=== PATIENT | male | born 1955 | race Caucasian/White ===

== ENCOUNTER → 2017-04-26 | Outpatient (CLI) | payer BC ==
--- NOTE | 2017-04-26 08:30 | CT ---
EXAMINATION TYPE: CT abdomen pelvis wo con DATE OF EXAM: 04/26/2017 COMPARISON: 03/28/2015 HISTORY: Hernia CT DLP: 778 mGycm Automated exposure control for dose reduction was used. TECHNIQUE: Helical acquisition of images was performed from the lung bases through the pelvis. Lack of contrast severely limits the exam FINDINGS: LUNG BASES: Mild emphysematous changes at the lung bases LIVER/GB: Hypodensity within the liver is too small to characterize but likely related to simple cyst .. PANCREAS: No significant abnormality is seen. SPLEEN: No significant abnormality is seen. ADRENALS: No significant abnormality is seen. KIDNEYS: Prostate is heterogeneous and enlarged and contains calcified patient. There is persistent l eft-sided hydronephrosis and hydroureter with periureteral edema and marked bladder wall thickening. Right-sided hydroureter and mild right hydronephrosis noted. Cortical thinning of the right kidney ma y been the basis of chronic medical renal disease. Possibly from chronic hydronephrosis. FREE AIR: No free air is visualized. ADENOPATHY: None visualized OSSEOUS STRUCTURES: Hypertrophic and degenerative change of the spine. BOWEL: There is a large ventral hernia mouth measuring approximately 6.5 cm extending into the subcu taneous tissues possible dehiscence. No bowel wall thickening or obstructive pattern. Suggestion of p revious surgery involving the bowel. OTHER: Aorta of normal caliber IMPRESSION: 1. Large [place] anterior abdominal wall hernia with no evidence of bowel obstruction or bowel wall thickening or obstruction. Mouth of the hernia measures approximately 6.5 cm. 2. Persistent marked bladder wall thickening may been the basis of chronic cystitis or mucosal lesion . There is moderate to severe left hydronephrosis with periureteral edema but no calcification. May b e secondary to obstruction or postinfectious. Correlate clinically. Mild right hydronephrosis and hyd roureter noted.
== END | disposition home or self-care (01) ==
LOC: RADCTMAIN 07:16
PROVIDERS: ATTEND Surgery
DX: K43.9 Ventral hernia without obstruction or gangrene (principal); N13.30 Unspecified hydronephrosis
CPT/HCPCS: 74176

== ENCOUNTER → 2018-03-28 | Outpatient (CLI) | payer BC ==
[2018-03-28 07:24] LABS: Basophils # (A) 0.1 k/uL (0-0.2); Basophils % (A) 1 %; Eosinophils # (A) 0.1 k/uL (0-0.7); Eosinophils % (A) 1 %; HGB 15.3 gm/dL (13.0-17.5); Lymphocytes # (A) 0.7 k/uL (1.0-4.8); Lymphocytes % (A) 15 %; MCH 29.3 pg (25.0-35.0); MCV 91.5 fL (80.0-100.0); Mean Platelet Volume 7.3; Monocytes # (A) 0.4 k/uL (0-1.0); Monocytes % (A) 8 %; Neutrophils # (A) 3.6 k/uL (1.3-7.7); Neutrophils % (A) 72 %; Platelet Count 274 k/uL (150-450); RBC 5.25 m/uL (4.30-5.90); RDW 14.9 % (11.5-15.5); WBC 4.9 k/uL (3.8-10.6)
[2018-03-28 07:53] LABS: Calcium 10.7 mg/dL (8.4-10.2); Magnesium 1.9 mg/dL (1.6-2.3); Phosphorus 2.9 mg/dL (2.5-4.5); Potassium 4.7 mmol/L (3.5-5.1); Total Bilirubin 0.5 mg/dL (0.2-1.3); Total Protein 6.8 g/dL (6.3-8.2); Uric Acid 8.7 mg/dL (3.5-8.5)
[2018-03-28 09:27] LABS: C Reactive Protein 15.4 mg/L (<10.0)
[2018-03-28 09:55] LABS: Prostate Specific Antigen 5.21 ng/mL (0.00-4.00)
[2018-03-28 10:39] LABS: Erythrocyte Sedimentation Rate 10 mm/hr (0-15)
[2018-03-28 12:18] LABS: Parathyroid Hormone Intact 134.5 pg/mL (14.0-72.0)
[2018-03-28 14:26] LABS: Iron Saturation 20.13 (15.00-50.00)
== END | disposition home or self-care (01) ==
LOC: LABWHC1 06:36
PROVIDERS: ATTEND Internal Medicine
DX: E78.5 Hyperlipidemia, unspecified (principal); D64.9 Anemia, unspecified; C61 Malignant neoplasm of prostate; N40.0 Benign prostatic hyperplasia without lower urinary tract symptoms; E87.8 Other disorders of electrolyte and fluid balance, not elsewhere classified; E21.3 Hyperparathyroidism, unspecified; E03.9 Hypothyroidism, unspecified; E55.9 Vitamin D deficiency, unspecified; I48.91 Unspecified atrial fibrillation
CPT/HCPCS: 36415; 80053; 80061; 82306; 82550; 82728; 83540; 83550; 83735; 83970; 84100; 84153; 84443; 84550; 85025; 85652; 86140

== ENCOUNTER → 2018-06-25 | Outpatient (CLI) | payer MEDICARE, BC ==
--- NOTE | 2018-06-25 13:00 | CT ---
EXAMINATION TYPE: CT ChestAbdPelvis w con DATE OF EXAM: 06/25/2018 COMPARISON: 04/26/2017 HISTORY: Prostate CA CT DLP: 1400 mGycm CONTRAST: CT scan of the chest, abdomen and pelvis is performed with Oral Contrast and with IV Contrast, patien t injected with 80 mL of Isovue 300. CT Chest: LUNGS: The lungs are clear and free of infiltrate or atelectasis. No pulmonary nodule or mass is det ected. No pleural effusion or CT evidence of interstitial lung disease. MEDIASTINUM: Thoracic aorta is of normal caliber. The heart is not enlarged. No evidence for media stinal mass or adenopathy. HILAR STRUCTURES: No evidence for mass. No hilar adenopathy is appreciated. OTHER: No significant abnormality. CONTRAST CT ABDOMEN AND PELVIS FINDINGS: LIVER/GB: No calcified gallstones. No space occupying hepatic lesion. Biliary tree is of normal ca liber. PANCREAS: No inflammation. No distinct mass. SPLEEN: No splenic enlargement. No lesion seen. ADRENALS: No nodule. No thickening. KIDNEYS/BLADDER: Persistent severe circumferential wall thickening of the urinary bladder with the ma ss suggested at the base of the urinary bladder which may reflect tumor infiltration from the prostat e gland. Bilateral hydronephrosis persists left greater than right with urothelial thickening. Renal cystic changes persist. BOWEL: Normal appendix. Repair of previously noted anterior abdominal wall hernia. Normal bowel amauri sandy. No inflammation. GENITAL ORGANS: No gross abnormality. LYMPH NODES: No greater than 1cm abdominal or pelvic lymph nodes are appreciated. AORTA: No significant abnormality. OSSEOUS STRUCTURES: No significant abnormality is seen. OTHER: No significant additional abnormality is seen. IMPRESSION: 1. Persistent severe circumferential wall thickening of the urinary bladder with the mass suggested a t the base of the urinary bladder which may reflect tumor infiltration from the prostate gland. Bilat eral hydronephrosis persists left greater than right with urothelial thickening.
--- NOTE | 2018-06-25 14:28 | NM ---
EXAMINATION TYPE: NM bone scan whole body DATE OF EXAM: 06/25/2018 COMPARISON: Correlation CT same day HISTORY: 63-year-old male with prostate cancer. Technique: Delayed whole-body scanning was performed following the injection of 23.3 mCi Tc 99m MDP. Images acquired 3 hours post injection. Whole body AP and posterior projection images were obtained. FINDINGS: Mild degenerative uptake at both shoulders and the sternoclavicular joints. Additional mild degenerat krunal uptake at both knees. Tracer distends the left renal collecting system. No suspicious distribution of tracer to suggest osseous metastatic disease. IMPRESSION: 1. No scintigraphic evidence for osseous metastatic disease. 2. Prominent tracer distending the left renal collecting system in keeping with the patient's known l eft-sided hydronephrosis.
== END | disposition home or self-care (01) ==
LOC: RADNMMAIN 09:58
PROVIDERS: ATTEND Internal Medicine Hematology & Oncology
DX: N13.30 Unspecified hydronephrosis (principal); N32.89 Other specified disorders of bladder; C61 Malignant neoplasm of prostate
CPT/HCPCS: 82565; 84520; 71260; 74177; 36415; 78306; A9503; Q9967

== ENCOUNTER → 2018-07-01 | Outpatient (CLI) | payer MEDICARE, BC ==
[2018-07-01 08:12] LABS: Basophils # (A) 0.1 k/uL (0-0.2); Basophils % (A) 2 %; Eosinophils # (A) 0.1 k/uL (0-0.7); Eosinophils % (A) 1 %; HCT 47.1 % (39.0-53.0); HGB 15.1 gm/dL (13.0-17.5); Lymphocytes # (A) 0.7 k/uL (1.0-4.8); Lymphocytes % (A) 16 %; MCH 29.6 pg (25.0-35.0); MCV 92.5 fL (80.0-100.0); Mean Platelet Volume 8.1; Monocytes # (A) 0.3 k/uL (0-1.0); Monocytes % (A) 7 %; Neutrophils # (A) 3.2 k/uL (1.3-7.7); Neutrophils % (A) 71 %; Platelet Count 316 k/uL (150-450); RBC 5.09 m/uL (4.30-5.90); WBC 4.6 k/uL (3.8-10.6)
[2018-07-01 09:36] LABS: ALT 25 U/L (21-72); AST 22 U/L (17-59); Albumin 3.8 g/dL (3.5-5.0); Alkaline Phosphatase 63 U/L (38-126); Anion Gap 7 mmol/L; Blood Urea Nitrogen 26 mg/dL (9-20); C Reactive Protein <5.0 mg/L (<10.0); Calcium 10.6 mg/dL (8.4-10.2); Carbon Dioxide 25 mmol/L (22-30); Chloride 108 mmol/L (98-107); Cholesterol 190 mg/dL (<200); Creatine Kinase 37 U/L (55-170); Glucose 97 mg/dL (74-99); HDL Cholesterol 67 mg/dL (40-60); LDL Cholesterol,Calculated 109 mg/dL (0-99); Phosphorus 3.3 mg/dL (2.5-4.5); Sodium 140 mmol/L (137-145); Total Bilirubin 0.5 mg/dL (0.2-1.3); Total Protein 6.8 g/dL (6.3-8.2); Triglycerides 70 mg/dL (<150); Uric Acid 7.8 mg/dL (3.5-8.5)
[2018-07-01 10:03] LABS: Erythrocyte Sedimentation Rate 15 mm/hr (0-15)
[2018-07-01 10:04] LABS: Prostate Specific Antigen 4.56 ng/mL (0.00-4.00)
[2018-07-01 17:03] LABS: Parathyroid Hormone Intact 159.3 pg/mL (14.0-72.0)
[2018-07-01 17:07] LABS: Iron Saturation 16.51 (15.00-50.00)
[2018-07-01 17:18] LABS: Vitamin D 25 Hydroxy 17.9 ng/mL (30.0-100.0)
== END | disposition home or self-care (01) ==
LOC: LABWHC1 06:49
PROVIDERS: ATTEND Internal Medicine
DX: C61 Malignant neoplasm of prostate (principal); D64.9 Anemia, unspecified; N40.0 Benign prostatic hyperplasia without lower urinary tract symptoms; E87.8 Other disorders of electrolyte and fluid balance, not elsewhere classified; E78.5 Hyperlipidemia, unspecified; E21.3 Hyperparathyroidism, unspecified; E55.9 Vitamin D deficiency, unspecified; I48.91 Unspecified atrial fibrillation; E05.90 Thyrotoxicosis, unspecified without thyrotoxic crisis or storm
CPT/HCPCS: 36415; 80053; 80061; 82306; 82550; 82728; 83540; 83550; 83735; 83970; 84100; 84153; 84443; 84550; 85025; 85652; 86140

== ENCOUNTER → 2018-11-01 | Outpatient (CLI) | payer MEDICARE, BC ==
[2018-11-01 08:37] LABS: Basophils % (A) 1 %; Eosinophils # (A) 0.1 k/uL (0-0.7); Eosinophils % (A) 2 %; HCT 49.7 % (39.0-53.0); HGB 15.5 gm/dL (13.0-17.5); Lymphocytes # (A) 0.7 k/uL (1.0-4.8); Lymphocytes % (A) 17 %; MCH 28.6 pg (25.0-35.0); MCHC 31.3 g/dL (31.0-37.0); MCV 91.5 fL (80.0-100.0); Mean Platelet Volume 7.4; Monocytes # (A) 0.3 k/uL (0-1.0); Monocytes % (A) 7 %; Neutrophils # (A) 2.9 k/uL (1.3-7.7); Neutrophils % (A) 69 %; Platelet Count 300 k/uL (150-450); RBC 5.43 m/uL (4.30-5.90); RDW 13.8 % (11.5-15.5); WBC 4.2 k/uL (3.8-10.6)
[2018-11-01 13:50] LABS: Erythrocyte Sedimentation Rate 4 mm/hr (0-15)
[2018-11-01 16:59] LABS: Iron Saturation 17.42 (15.00-50.00)
[2018-11-01 17:09] LABS: Vitamin D 25 Hydroxy 23.6 ng/mL (30.0-100.0)
[2018-11-01 17:19] LABS: ALT 22 U/L (10-49); AST 22 U/L (14-35); Albumin/Globulin Ratio 1.68 (1.20-2.10); Alkaline Phosphatase 75 U/L (41-126); C Reactive Protein <0.4 mg/dL (0.0-0.8); Calcium 10.4 mg/dL (8.7-10.3); Carbon Dioxide 27.2 mmol/L (21.6-31.8); Chloride 108 mmol/L (96-109); Cholesterol 183 mg/dL (0-200); Creatine Kinase 77 U/L (35-257); Globulin 2.5 g/dL (1.6-3.3); Glucose 98 mg/dL (70-110); Magnesium 1.8 mg/dL (1.5-2.4); Parathyroid Hormone Intact 120.4 pg/mL (14.0-72.0); Phosphorus 3.2 mg/dL (2.4-5.1); Potassium 4.7 mmol/L (3.5-5.5); Sodium 142 mmol/L (135-145); Total Bilirubin 0.4 mg/dL (0.3-1.2); Total Protein 6.7 g/dL (6.2-8.2); Uric Acid 7.7 mg/dL (3.7-8.7)
== END | disposition home or self-care (01) ==
LOC: LABWHC1 08:13
PROVIDERS: ATTEND Internal Medicine
DX: C61 Malignant neoplasm of prostate (principal); D64.9 Anemia, unspecified; N40.0 Benign prostatic hyperplasia without lower urinary tract symptoms; E87.8 Other disorders of electrolyte and fluid balance, not elsewhere classified; E78.5 Hyperlipidemia, unspecified; E21.3 Hyperparathyroidism, unspecified; E03.9 Hypothyroidism, unspecified; E55.9 Vitamin D deficiency, unspecified; I48.91 Unspecified atrial fibrillation
CPT/HCPCS: 36415; 80053; 80061; 82306; 82550; 82728; 83540; 83550; 83735; 83970; 84100; 84153; 84443; 84550; 85025; 85652; 86140

== ENCOUNTER → 2019-02-11 | Outpatient (CLI) | payer MEDICARE, BC ==
[2019-02-11 08:54] LABS: Ionized Calcium 6.1 mg/dL (4.5-5.3)
[2019-02-11 11:33] LABS: Calcium 10.4 mg/dL (8.7-10.3); Magnesium 1.8 mg/dL (1.5-2.4); Phosphorus 3.6 mg/dL (2.4-5.1)
[2019-02-11 11:39] LABS: Vitamin D 25 Hydroxy 30.4 ng/mL (30.0-100.0)
[2019-02-11 12:54] LABS: Parathyroid Hormone Intact 109.5 pg/mL (14.0-72.0)
== END | disposition home or self-care (01) ==
LOC: LABWHC1 06:33
PROVIDERS: ATTEND Internal Medicine
DX: N40.0 Benign prostatic hyperplasia without lower urinary tract symptoms (principal); E55.9 Vitamin D deficiency, unspecified
CPT/HCPCS: 36415; 82306; 82310; 82330; 83735; 83970; 84100; 84153

== ENCOUNTER 2021-03-01 09:21 | Inpatient (IN) | payer BC, MEDICARE ==
[2021-03-01] MEDS ORDERED: SODIUM CHLORIDE 0.9% 1,000 ML IV STA (09:33)
--- NOTE | 2021-03-01 09:37 | ED ---
General Adult HPI - General Chief complaint: Neuro Symptoms/Deficit Stated complaint: loss of speech Time Seen by Provider: 03/01/21 09:30 Source: patient Mode of arrival: ambulatory Limitations: no limitations - History of Present Illness Initial comments: Dictation was produced using [employer]panda / hellof[employer] dictation software. please excuse any grammatical, word or spelling errors. This patient was cared for during a federal and state declared state of emerge ncy secondary to Covid 19 Chief Complaint: 65-year-old male with past medical history of A. fib, hypertension renal disease presents emergency Department stroke symptoms History of Present Illness: 65-year-old male who is brought in by his friend. Patient's friend provides history of present illness. He states that he believes patient was last known normal last night approximately 7 PM. Friend called the patient this morning and patient was only able to put together 2 word sentences. Friend went to go pick him up and brought to the emergency department. Patient unable to provide history of present illness at this time. Friend reports the patient wakes up at 3 or 4 in the morning. Typically goes to bed at 7 PM tonight. Unable to obtain secondary to mental status PHYSICAL EXAM: General Impression: Alert, not in acute distress HEENT: Normocephalic atraumatic, extra-ocular movements intact, pupils equal and reactive to light bilaterally, mucous membranes moist. Cardiovascular: Heart regular rate and rhythm Chest: Able to complete full sentences, no retractions, no tachypnea Abdomen: abdomen soft, non-tender, non-distended, no organomegaly Musculoskeletal: Pulses present and equal in all extremities, no peripheral edema Motor: no focal deficits noted Neurological: Right facial droop, aphasic Skin: Intact with no visualized rashes Psych: Normal affect and mood ED course: 65-year-old male presents with strokelike symptoms. Vital signs upon arrival shows heart rate of 134, rest of vital signs within acceptable limits. Patient given an NIH score of 6. Tylenol onset is not clear. Last known normal which is also very vague was suspected to be around 7 PM last night. Friend reports the patient lives alone. Patient not a TPA candidate given that its un clear when patient's last known normal was an best answer was approximate 7 PM last night. EKG interpretation: Ventricular rate 130, A. fib with RVR, QRS 110, QTc 488. No OH prolongation, no QTC prolongation, no ST or T-wave changes noted. EKG compared to 08/08/2017 showing no changes. Overall, this EKG is unremarkable Laboratory evaluation obtained. CBC, coag panel, metabolic panel are within acceptable limits for patient's baseline. CT of the brain shows no intracranial bleed. CT angios shows no large vessel occlusion. Patient reevaluated bedside at 11 AM still aphasic. Patient not N alteplase or thrombectomy candidate. Stroke doctor, Dr. Flores request the patient be given aspirin and ticagrelor. Patient be admitted for cerebrovascular accident. Case discussed Dr. Diamond. Neurology will be on consultation. - Related Data Home Medications Medication Instructions Recorded Confirmed Unable To Assess [Unable to Assess] 03/01/21 03/01/21 Allergies Allergy/AdvReac Type Severity Reaction Status Date / Time divalproex sodium Allergy Rash/Hives Verified 03/01/21 09:46 [facility] Review of Systems ROS Statement: Those systems with pertinent positive or pertinent negative responses have been documented in the HPI. ROS Other: All systems not noted in ROS Statement are negative. Past Medical History Past Medical History: Atrial Fibrillation, Cancer, Hypertension, Renal Disease Additional Past Medical History / Comment(s): HX. BILAT HYDRONEPHROSIS, hx. perforated diverticulum, hx. of A-fib in past-says doesn't have anymore-took xarelto until few months ago, hx. prostate cancer-tx. w/cryotherapy History of Any Multi-Drug Resistant Organisms: None Reported Past Surgical History: Back Surgery, Bowel Resection Additional Past Surgical History / Comment(s): SX TO RELIEVE BLEEDING IN THE HEAD from head injury @[facility],. COLOSTOMY 2015 then reversal Past Anesthesia/Blood Transfusion Reactions: No Reported Reaction Past Psychological History: No Psychological Hx Reported Smoking Status: Never smoker Past Alcohol Use History: Occasional Past Drug Use History: None Reported - Past Family History Father Family Medical History: AFIB, Coronary Artery Disease (CAD), Prostate Disorder General Exam Limitations: no limitations Course Vital Signs 03/01/21 03/01/21 03/01/21 09:22 10:00 10:10 Temperature 98 F Pulse Rate 134 H 117 H 128 H Respiratory 16 15 17 Rate Blood Pressure 167/101 159/119 146/110 O2 Sat by Pulse 99 99 99 Oximetry 03/01/21 10:42 Temperature Pulse Rate 105 H Respiratory 16 Rate Blood Pressure 145/94 O2 Sat by Pulse 99 Oximetry Medical Decision Making - Lab Data Result diagrams: 03/01/21 09:36 03/01/21 09:36 Lab Results 03/01/21 03/01/21 03/01/21 Range/Units 09:31 09:36 09:36 WBC 8.6 (3.8-10.6) k/uL RBC 5.37 (4.30-5.90) m/uL Hgb 14.7 (13.0-17.5) gm/dL Hct 47.4 (39.0-53.0) % MCV 88.4 (80.0-100.0) fL MCH 27.3 (25.0-35.0) pg MCHC 30.9 L (31.0-37.0) g/dL RDW 15.2 (11.5-15.5) % Plt Count 345 (150-450) k/uL MPV 7.9 Neutrophils % 84 % Lymphocytes % 7 % Monocytes % 6 % Eosinophils % 0 % Basophils % 1 % Neutrophils # 7.2 (1.3-7.7) k/uL Lymphocytes # 0.6 L (1.0-4.8) k/uL Monocytes # 0.5 (0-1.0) k/uL Eosinophils # 0.0 (0-0.7) k/uL Basophils # 0.1 (0-0.2) k/uL PT 10.7 (9.0-12.0) sec INR 1.0 (<1.2) APTT 21.5 L (22.0-30.0) sec Sodium (137-145) mmol/L Potassium (3.5-5.1) mmol/L Chloride (98-107) mmol/L Carbon Dioxide (22-30) mmol/L Anion Gap mmol/L BUN (9-20) mg/dL Creatinine (0.66-1.25) mg/dL Est GFR (CKD-EPI)AfAm (>60 ml/min/1.73 sqM) Est GFR (CKD-EPI)NonAf (>60 ml/min/1.73 sqM) Glucose (74-99) mg/dL POC Glucose (mg/dL) 112 H (75-99) mg/dL POC Glu Bird Raiser ID McNeice, Kylie Calcium (8.4-10.2) mg/dL Total Bilirubin (0.2-1.3) mg/dL AST (17-59) U/L ALT (4-49) U/L Alkaline Phosphatase (38-126) U/L Troponin I (0.000-0.034) ng/mL Total Protein (6.3-8.2) g/dL Albumin (3.5-5.0) g/dL 03/01/21 03/01/21 Range/Units 09:36 09:36 WBC (3.8-10.6) k/uL RBC (4.30-5.90) m/uL Hgb (13.0-17.5) gm/dL Hct (39.0-53.0) % MCV (80.0-100.0) fL MCH (25.0-35.0) pg MCHC (31.0-37.0) g/dL RDW (11.5-15.5) % Plt Count (150-450) k/uL MPV Neutrophils % % Lymphocytes % % Monocytes % % Eosinophils % % Basophils % % Neutrophils # (1.3-7.7) k/uL Lymphocytes # (1.0-4.8) k/uL Monocytes # (0-1.0) k/uL Eosinophils # (0-0.7) k/uL Basophils # (0-0.2) k/uL PT (9.0-12.0) sec INR (<1.2) APTT (22.0-30.0) sec Sodium 140 (137-145) mmol/L Potassium 4.7 (3.5-5.1) mmol/L Chloride 111 H (98-107) mmol/L Carbon Dioxide 20 L (22-30) mmol/L Anion Gap 9 mmol/L BUN 22 H (9-20) mg/dL Creatinine 1.62 H (0.66-1.25) mg/dL Est GFR (CKD-EPI)AfAm 50 (>60 ml/min/1.73 sqM) Est GFR (CKD-EPI)NonAf 43 (>60 ml/min/1.73 sqM) Glucose 138 H (74-99) mg/dL POC Glucose (mg/dL) (75-99) mg/dL POC Glu Bird Raiser ID Calcium 10.5 H (8.4-10.2) mg/dL Total Bilirubin 0.5 (0.2-1.3) mg/dL AST 22 (17-59) U/L ALT 34 (4-49) U/L Alkaline Phosphatase 77 (38-126) U/L Troponin I 0.021 (0.000-0.034) ng/mL Total Protein 6.6 (6.3-8.2) g/dL Albumin 3.8 (3.5-5.0) g/dL Critical Care Time Critical Care Time: Yes Total Critical Care Time: 33 Disposition Clinical Impression: Cerebrovascular accident (CVA) Disposition: ADMITTED IP TO THIS [facility] Condition: Critical Referrals: None,Stated [Primary Care Provider] - 1-2 days Decision Time: 11:05
[2021-03-01 09:42] LABS: Glucose,Whole Blood 112 mg/dL (75-99)
[2021-03-01 09:48] LABS: Basophils # (A) 0.1 k/uL (0-0.2); Basophils % (A) 1 %; Eosinophils % (A) 0 %; HCT 47.4 % (39.0-53.0); HGB 14.7 gm/dL (13.0-17.5); Lymphocytes # (A) 0.6 k/uL (1.0-4.8); Lymphocytes % (A) 7 %; MCH 27.3 pg (25.0-35.0); MCHC 30.9 g/dL (31.0-37.0); MCV 88.4 fL (80.0-100.0); Mean Platelet Volume 7.9; Monocytes # (A) 0.5 k/uL (0-1.0); Monocytes % (A) 6 %; Neutrophils # (A) 7.2 k/uL (1.3-7.7); Neutrophils % (A) 84 %; Platelet Count 345 k/uL (150-450); RBC 5.37 m/uL (4.30-5.90); RDW 15.2 % (11.5-15.5); WBC 8.6 k/uL (3.8-10.6)
[2021-03-01] MEDS ORDERED: TICAGRELOR 90 MG TAB PO STA (09:50)
[2021-03-01] MEDS ORDERED: ASPIRIN 81 MG PO STA (09:50)
--- NOTE | 2021-03-01 09:52 | CT ---
EXAMINATION TYPE: CT brain wo con for TPA DATE OF EXAM: 03/01/2021 COMPARISON: 03/26/2015 HISTORY: 65-year-old male with right side facial droop TECHNIQUE: Examination was done in axial plane without intravenous contrast. Coronal and sagittal r econstructions performed. CT DLP: 1136.8 mGycm Automated exposure control for dose reduction was used. FINDINGS: There is no evidence of acute intracranial hemorrhage, acute ischemic changes, mass, mass-effect, or extra-axial fluid collection. There is no effacement of cerebral sulci or basal subarachnoid cister ns. There is no hydrocephalus. There is no midline shift. Harkins-white matter distinction is preserv ed. Partially empty sella redemonstrated. Normal variation persistent cavum septum pellucidum. Old left- sided abel holes. Mild generalized supratentorial volume loss. Slight leftward nasal septal deviation. Visualized paranasal sinuses and mastoid air cells are clear. Orbits and globes are intact. IMPRESSION: Similar mild generalized atrophy. No acute intracranial abnormality seen. Old left-sided abel holes.
[2021-03-01 10:07] LABS: Albumin 3.8 g/dL (3.5-5.0); Calcium 10.5 mg/dL (8.4-10.2); Potassium 4.7 mmol/L (3.5-5.1); Total Bilirubin 0.5 mg/dL (0.2-1.3); Total Protein 6.6 g/dL (6.3-8.2)
--- NOTE | 2021-03-01 10:09 | CT ---
EXAMINATION TYPE: CT angio head neck DATE OF EXAM: 03/01/2021 COMPARISON: CT brain HISTORY: 65-year-old male with neurologic deficit, acute, stroke suspected, right-sided facial droop. TECHNIQUE: Contiguous axial scanning of the head and neck performed with IV Contrast, patient injecte d with 65 mL of Isovue 370. Coronal/sagittal MIP reconstructions performed. 3-D reconstructions gener ated on a dedicated independent workstation. CT DLP: Not reported Automated exposure control for dose reduction was used. FINDINGS: NECK: Ectatic ascending aorta 3.9 cm. Bovine configuration to the aortic arch. Vertebral arteries are codominant. They are patent throughout their course. The right common carotid artery is patent. Right internal carotid artery is patent. The proximal right ICA has a short retropharyngeal course. The left common and internal carotid arteries are widely patent. HEAD: Early takeoff of the left PICA from the distalmost V3 segment of the left vertebral artery. The V4 se gment of the left vertebral artery becomes hypoplastic and small in caliber. Otherwise, the vertebral and basilar arteries are patent. Bilateral posterior communicating arteries are seen. Remainder of the posterior circulation appears patent. There is slight 4 mm fusiform promin ence to the distal basilar artery. The internal carotid arteries and remainder of the anterior circulation is patent. No significant stenosis or otherwise any other aneurysmal changes seen. Dural venous sinuses appear patent IMPRESSION: 1. NECK: BOVINE CONFIGURATION TO THE AORTIC ARCH. THE CAROTID AND VERTEBRAL ARTERIES OF THE NECK ARE WIDELY PATENT. 2. 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 MINIMAL 4 MM FUSI FORM DILATATION/ANEURYSM DISTAL BASILAR ARTERY. NO SACCULAR ANEURYSM. NO LARGE VESSEL INTRACRANIAL AR TERIAL OCCLUSION OR SIGNIFICANT STENOSIS.
--- NOTE | 2021-03-01 10:15 | XR ---
EXAMINATION TYPE: XR chest 2V DATE OF EXAM: 03/01/2021 COMPARISON: 03/29/2015 HISTORY: Altered mental status TECHNIQUE: Frontal and lateral views of the chest are obtained. FINDINGS: Heart size is mildly enlarged. Atherosclerotic aorta. Patchy left basilar airspace opacity suggestive of atelectasis or developing pneumonia. No pleural effusion or pneumothorax. IMPRESSION: 1. Vague patchy left basilar air space opacity suggestive of atelectasis or developing pneumonia. 2. Mild cardiomegaly.
[2021-03-01] MEDS ORDERED: DILTIAZEM DRIP BOLUS FROM BAG 1 MG SOLN IV ONE (10:16)
[2021-03-01 10:23] LABS: Prothrombin Time 10.7 sec (9.0-12.0)
[2021-03-01] MEDS ORDERED: DILTIAZEM 125 MG in SODIUM CHLORIDE 0.9% 100 ML IV SCH (10:30)
[2021-03-01 10:41] LABS: Partial Thromboplastin Time 21.5 sec (22.0-30.0)
--- NOTE | 2021-03-01 15:53 | P.HPIM ---
History of Present Illness 65-year-old male came in with complains of speech abnormality unable to quit started today morning when he woke up onset of symptoms is not clear as he woke up with the symptoms. Patient doesn't have any weakness tingling numbness h eadache nausea vomiting. Patient does have history of atrial fibrillation has not been taking his eliquis, patient was started on Cardizem patient was given brillianta, with concerns of post stroke hemorrhage patient is not being started on anticoagulation now neurology evaluated the patient patient was started on anticoagulation and recommending to start him on Eliquis follows after Brady. Echocardiogram will be obtained patient will undergo MRI. Patient had a normal echocardiogram in the past Review of Systems REVIEW OF SYSTEMS: CONSTITUTIONAL: No fever, no malaise, no fatigue. HEENT: No recent visual problems or hearing problems. Denied any sore throat. CARDIOVASCULAR: No chest pain, orthopnea, PND, no palpitations, no syncope. PULMONARY: No shortness of breath, no cough, no hemoptysis. GASTROINTESTINAL: No diarrhea, no nausea, no vomiting, no abdominal pain. NEUROLOGICAL: As mentioned in HPI HEMATOLOGICAL: Denies any bleeding or petechiae. GENITOURINARY: Denies any burning micturition, frequency, or urgency. MUSCULOSKELETAL/RHEUMATOLOGICAL: Denies any joint pain, swelling, or any muscle pain. ENDOCRINE: Denies any polyuria or polydipsia. The rest of the 14-point review of systems is negative. Past Medical History Past Medical History: Atrial Fibrillation, Cancer, Hypertension, Renal Disease Additional Past Medical History / Comment(s): HX. BILAT HYDRONEPHROSIS, hx. perforated diverticulum, hx. of A-fib in past-says doesn't have anymore-took xarelto until few months ago, hx. prostate cancer-tx. w/cryotherapy History of Any Multi-Drug Resistant Organisms: None Reported Past Surgical History: Back Surgery, Bowel Resection Additional Past Surgical History / Comment(s): SX TO RELIEVE BLEEDING IN THE HEAD from head injury @[facility],. COLOSTOMY 2015 then reversal Past Anesthesia/Blood Transfusion Reactions: No Reported Reaction Past Psychological History: No Psychological Hx Reported Smoking Status: Never smoker Past Alcohol Use History: Occasional Past Drug Use History: None Reported - Past Family History Father Family Medical History: AFIB, Coronary Artery Disease (CAD), Prostate Disorder Medications and Allergies Home Medications Medication Instructions Recorded Confirmed Type No Known Home Medications 03/01/21 03/01/21 History Allergies Allergy/AdvReac Type Severity Reaction Status Date / Time divalproex sodium Allergy Rash/Hives Verified 03/01/21 09:46 [From [facility]] Physical Exam Vitals: Vital Signs Temp Pulse Pulse Resp BP BP Pulse Ox 03/01/21 12:44 104 H 16 154/97 97 03/01/21 12:00 98.2 F 117 H 17 148/95 99 03/01/21 11:00 114 H 16 145/94 99 03/01/21 10:42 105 H 16 145/94 99 03/01/21 10:10 128 H 17 146/110 99 03/01/21 10:00 117 H 15 159/119 99 03/01/21 09:22 98 F 134 H 16 167/101 99 Intake and Output 03/01/21 03/01/21 03/01/21 06:59 14:59 22:59 Other: Weight 79.379 kg PHYSICAL EXAMINATION: GENERAL: The patient is alert and oriented x3, not in any acute distress. Well developed, well nourished. HEENT: Pupils are round and equally reacting to light. EOMI. No scleral icterus. No conjunctival pallor. Normocephalic, atraumatic. No pharyngeal erythema. No thyromegaly. CARDIOVASCULAR: S1 and S2 present. No murmurs, rubs, or gallops. PULMONARY: Chest is clear to auscultation, no wheezing or crackles. ABDOMEN: Soft, nontender, nondistended, normoactive bowel sounds. No palpable organomegaly. MUSCULOSKELETAL: No joint swelling or deformity. EXTREMITIES: No cyanosis, clubbing, or pedal edema. NEUROLOGICAL: Patient appears to have moderate disease in without any other focal deficits. SKIN: No rashes. Results CBC & Chem 7: 03/01/21 09:36 03/01/21 09:36 Labs: Abnormal Lab Results - Last 24 Hours (Table) 03/01/21 03/01/21 03/01/21 Range/Units 09:31 09:36 09:36 MCHC 30.9 L (31.0-37.0) g/dL Lymphocytes # 0.6 L (1.0-4.8) k/uL APTT 21.5 L (22.0-30.0) sec Chloride (98-107) mmol/L Carbon Dioxide (22-30) mmol/L BUN (9-20) mg/dL Creatinine (0.66-1.25) mg/dL Glucose (74-99) mg/dL POC Glucose (mg/dL) 112 H (75-99) mg/dL Calcium (8.4-10.2) mg/dL 03/01/21 Range/Units 09:36 MCHC (31.0-37.0) g/dL Lymphocytes # (1.0-4.8) k/uL APTT (22.0-30.0) sec Chloride 111 H (98-107) mmol/L Carbon Dioxide 20 L (22-30) mmol/L BUN 22 H (9-20) mg/dL Creatinine 1.62 H (0.66-1.25) mg/dL Glucose 138 H (74-99) mg/dL POC Glucose (mg/dL) (75-99) mg/dL Calcium 10.5 H (8.4-10.2) mg/dL Assessment and Plan Plan: 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 Atrial fibrillation patient is presently rapid ventricular rate patient is presently on Cardizem which will be transitioned to oral metoprolol`. Patient will be started on anti-coagulation 12 hours after his first dose of brain to which she received in ER. -Noncompliance with medications -Hypertension - chronic kidney disease stage III hypertensive nephrosclerosis
--- NOTE | 2021-03-01 16:38 | MR ---
MR brain without contrast HISTORY: Cerebrovascular accident, right facial Multiplanar multisequence imaging of the brain, correlation CT brain 03/01/2021 Fast brain protocol utilized due to patient's debility. There is restricted diffusion seen along the insula and operculum on the left. Corresponding hyperint ensity is present on inversion recovery and T2-weighted sequences. Confluent and scattered hyperinten sities are present within the subcortical and periventricular white matter on inversion recovery T2-w eighted sequences. There are normal vascular flow voids. No evident hemorrhage or hydrocephalus. The corpus callosum, pituitary, cervical medullary junction, cerebellopontine angles are within normal li mits. Orbits show symmetric appearance. Mild inflammatory change present in the ethmoid air cells. IMPRESSION: Subacute infarct involving the insula and operculum on the left along the sylvian fissure .
[2021-03-01] MEDS: METOPROLOL TARTRATE 50 MG TAB PO SCH (17:18)
[2021-03-01] MEDS: APIXABAN 5 MG TAB PO SCH (21:23)
--- NOTE | 2021-03-01 23:43 | P.CNNES ---
History of Present Illness Consult date: 03/01/21 Requesting physician: Samson Presley Reason for Consult: CVA History of Present Illness: Patient is a 65-year-old male came to the hospital today at 9:21 AM for acute onset of aphasia. Patient has presented to the ER with severe aphasia. Last known well was 7 PM. Friend called the patient this morning and patient was only able to put 2 word sentences. Friend went to his home and brought him to the hospital. Patient's NIH stroke scale in the ER was 5. ED physician discussed with stroke neurologist, and patient was considered not a candidate for TPA or mechanical thrombectomy. Patient was recommended aspirin and Brilinta 90 mg, which he received in the ER. Patient was seen on the floor and by the time I saw the patient, his symptoms have remarkably improved with and a NIH stroke scale of 2. Patient states that he woke up this morning at 4 AM and was feeling fine. He took shower, and felt coherent. He drank juice, got dressed and drove to the office. He arrived in the office at 6:30 AM. At around 7 AM patient was trying to write something when he felt his penmanship was affected. He spoke to his litigation secretary on was having issues with the speech. He called his friend and his friend could not make anything out what he was saying. He came over and brought patient to the hospital. Patient denied any focal numbness, tingling, weakness or gait issues. No visual symptoms. Vital signs on arrival blood pressure 167/101, pulse rate 134, temperature 98.0. CT head showed some mild generalized atrophy. No acute intracranial abnormality. Old left-sided abel holes. 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 Minimal 4 mm fusiform dilation/aneurysm distal basilar artery. No saccular aneurysm. No large vessel intracranial arterial occlusion or significant stenosis. CTA of the neck showed bovine configuration to the aortic arch. The carotid and vertebral arteries of the neck are widely patent. Chest x-ray showed vague patchy left basilar airspace opacities suggestive of atelectasis or developing pneumonia. Mild cardiomegaly. EKG shows atrial fibrillation with rapid ventricle rate. Left axis deviation. Patient states he has history of atrial fibrillation 3-4 years ago when he suffered from a ruptured diverticulitis with septic bowel. He was placed on Xarelto. He continued this medication for a few years. About a year ago he decided on his own to stop Xarelto, as he "felt good". He was fine until today as mentioned. Patient denies diabetes, no hypertension, never smoked. 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 Patient states that about 8-9 years ago he suffered from a fall down stairs, and was diagnosed with intracranial bleed for which he underwent craniotomy. He recovered well from it. Review of Systems Patient denies any headache, problem with the vision, hoarseness sore throat. He does have some slurred speech. Denies any focal numbness tingling weakness balance issue. Denies chest pain, abdominal pain nausea vomiting diarrhea. All other review of systems noncontributory. Past Medical History Past Medical History: Atrial Fibrillation, Cancer, Hypertension, Renal Disease Additional Past Medical History / Comment(s): HX. BILAT HYDRONEPHROSIS, hx. perforated diverticulum, hx. of A-fib in past-says doesn't have anymore-took xarelto until few months ago, hx. prostate cancer-tx. w/cryotherapy History of Any Multi-Drug Resistant Organisms: None Reported Past Surgical History: Back Surgery, Bowel Resection Additional Past Surgical History / Comment(s): SX TO RELIEVE BLEEDING IN THE HEAD from head injury @[facility],. COLOSTOMY 2015 then reversal Past Anesthesia/Blood Transfusion Reactions: No Reported Reaction Past Psychological History: No Psychological Hx Reported Smoking Status: Never smoker Past Alcohol Use History: Occasional Past Drug Use History: None Reported - Past Family History Father Family Medical History: AFIB, Coronary Artery Disease (CAD), Prostate Disorder Medications and Allergies Home Medications Medication Instructions Recorded Confirmed Type No Known Home Medications 03/01/21 03/01/21 History Allergies Allergy/AdvReac Type Severity Reaction Status Date / Time divalproex sodium Allergy Rash/Hives Verified 03/01/21 09:46 [From Depakote] Physical Examination - Vital Signs Vital Signs: Vital Signs Temp Pulse Pulse Resp BP BP Pulse Ox 03/01/21 12:44 104 H 16 154/97 97 03/01/21 12:00 98.2 F 117 H 17 148/95 99 03/01/21 11:00 114 H 16 145/94 99 03/01/21 10:42 105 H 16 145/94 99 03/01/21 10:10 128 H 17 146/110 99 03/01/21 10:00 117 H 15 159/119 99 03/01/21 09:22 98 F 134 H 16 167/101 99 Intake and Output 02/28/21 03/01/21 03/01/21 22:59 06:59 14:59 Other: Weight 79.379 kg Patient is an elderly male, in no acute distress. He does appear slightly short of breath at rest. Patient is alert awake oriented to time place and person. Speech is mildly dysarthric and language functions are normal. Attention, concentration and fund of knowledge is adequate. Patient can name, repeat very well. He can follow written commands. Comprehension is intact. He has very mild intermittent hesitancy in speech. On cranial examination, pupils are equal, round and reacting to light, visual grande are full on confrontation with no neglect on double simultaneous stimulation, extraocular muscles are intact with no nystagmus. Patient has mild right facial asymmetry, with drooling on the right side, tongue protrudes to slightly to the right. Palatal elevation and sensation normal, hearing and shoulder shrug normal, facial sensation normal. Shoulder shrug normal. On muscle strength testing, there is no pronator drift and the strength is normal in arms and legs distally and proximally. Deep tendon reflexes are trace in the upper limbs, 3 at the right knee, 2 at the left knee, 1+ right ankle, 1 left ankle and plantars are downgoing bilaterally. Sensory to touch is equal with no neglect on double simultaneous stimulation. Cerebellar function showed no ataxia for [id number] testing. No dysdi adochokinesia. Tone and bulk of muscles normal. Gait normal. On general examination, there is no carotid bruit or murmur, S1-S2 audible. Abdomen is soft nontender. Chest is clear. Peripheral pulses are present. No edema. Results - Laboratory Findings CBC and BMP: 03/01/21 09:36 03/01/21 09:36 Abnormal Lab Findings: Abnormal Labs 03/01/21 03/01/21 03/01/21 09:31 09:36 09:36 MCHC 30.9 L Lymphocytes # 0.6 L APTT 21.5 L Chloride Carbon Dioxide BUN Creatinine Glucose POC Glucose (mg/dL) 112 H Calcium 03/01/21 09:36 MCHC Lymphocytes # APTT Chloride 111 H Carbon Dioxide 20 L BUN 22 H Creatinine 1.62 H Glucose 138 H POC Glucose (mg/dL) Calcium 10.5 H Assessment and Plan Assessment: * Acute ischemic stroke left MCA vascular territory, likely cardioembolic from atrial fibrillation. Patient's NIH stroke scale was 5 in the ER, but now has improved to 2. 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 * History of craniotomy due to intracranial bleed 8 or 9 years ago Plan: * Patient will undergo MRI of the brain to evaluate for the extent of stroke, rule out hemorrhagic conversion. If negative, patient will be started on anticoagulation. * 2-D echo. * Hemoglobin A1c, fasting lipid panel * Close neuro checks. * Blood pressure control, to be maintained less than 185 systolic.
--- NOTE | 2021-03-02 06:47 | ECHOF ---
Referral Reason:CVA MEASUREMENTS -------- HEIGHT: 180.3 cm WEIGHT: 79.4 kg BP: IVSd: 1.0 cm (0.6 - 1.1) LVIDd: 5.5 cm (3.9 - 5.3) LVPWd: 1.3 cm (0.6 - 1.1) IVSs: 1.4 cm LVIDs: 5.0 cm LVPWs: 1.3 cm LAESV Index (A-L): 33.83 ml/m MV EXCURSION: 14.924 mm (> 18.000) MV EF SLOPE: 132 mm/s (70 - 150) EPSS: 2.5 cm AR PHT: 901 ms RAP: 5.00 mmHg RVSP: 36.01 mmHg FINDINGS -------- Atrial fibrillation. This was a technically difficult study with suboptimal views. The left ventricular size is normal. There is borderline concentric left ventricular hypertrophy. There is severe global hypokinesis of LV . Overall left ventricular systolic function is severely impaired with, an EF between 20 - 25 %. Left ventricular fillimg pressure cannot be estimated due t o Atrial fibrillation. The right ventricle is normal in size. LA is midly dilated 29-33ml/m2. The right atrial size is normal. Lumason used Aortic valve is trileaflet and is mildly thickened. There is mild aortic regurgitation. The mitral valve is normal. Mild mitral regurgitation is present. The tricuspid valve appears structurally normal. Mild tricuspid regurgitation present. Right vent ricular systolic pressure is normal at < 35 mmHg. There is no pulmonic regurgitation present. The aortic root size is normal. Normal inferior vena cava with normal inspiratory collapse consistent with estimated right atrial pre ssure of 5 mmHg. There is no pericardial effusion. CONCLUSIONS -------- 1. The left ventricular size is normal. 2. There is borderline concentric left ventricular hypertrophy. 3. There is severe global hypokinesis of LV . 4. Overall left ventricular systolic function is severely impaired with, an EF between 20 - 25 %. 5. Left ventricular fillimg pressure cannot be estimated due to Atrial fibrillation. 6. LA is midly dilated 29-33ml/m2. 7. Aortic valve is trileaflet and is mildly thickened. 8. There is mild aortic regurgitation. 9. Mild mitral regurgitation is present. 10. Mild tricuspid regurgitation present. 11. There is no pericardial effusion. PIG MACHINE OPERATOR HELPER: Adrienne Steinberg RDCS
[2021-03-02] MEDS: APIXABAN 5 MG TAB PO SCH ×2 (08:07→20:26)
[2021-03-02] MEDS: METOPROLOL TARTRATE 50 MG TAB PO SCH ×2 (08:07→23:33)
[2021-03-02 10:28] LABS: Calcium 11.1 mg/dL (8.4-10.2); Potassium 5.3 mmol/L (3.5-5.1)
[2021-03-02] MEDS: FUROSEMIDE 10 MG/ML 4 ML VIAL IV SCH ×2 (12:13→23:33)
--- NOTE | 2021-03-02 12:57 | P.CRDCN ---
History of Present Illness History of present illness: HISTORY OF PRESENTING ILLNESS This is a pleasant 65-year-old male past medical history significant for proximal atrial fibrillation, hypertension, chronic kidney disease and nonischemic cardiomyopathy secondary to A. fib. He is to follow-up in the office with Dr. Castellon however has not been there since 2019. The patient states he has not taken any of his medications since that time or seen any other physician. Most recent echocardiogram obtained in 2018 revealed impaired LV systolic function with ejection fraction 35-45%. He presented to the hospital on this admission secondary to aphasia and has been diagnosed with a left MCA CVA secondary to atrial fibrillation. Anticoagulation has been initiated for the primary care team and advice of neurology. Echocardiogram on this admission revealed severely impaired LV systolic function with ejection fraction 20-25%. EKG reveals atrial fibrillation with heart rate of 130. He was on Cardizem infusion which has since been discontinued. Telemetry tracings indicate persistent atrial fibrillation with variable ventricular rates. He is seen and examined sitting up in the chair in no acute distress. He has no symptoms of chest discomfort, shortness of breath, dizziness or palpitations. He states he exercises daily and never has symptoms of angina. He does notice over the previous one year he has become more easily fatigued. REVIEW OF SYSTEMS At the time of my exam: CONSTITUTIONAL: Denies fever or chills. CARDIOVASCULAR: Denies chest pain, shortness of breath, orthopnea, PND or palpitations. RESPIRATORY: Denies cough. GASTROINTESTINAL: Denies abdominal pain, diarrhea, constipation, nausea or vomiting. MUSCULOSKELETAL: Denies myalgias. NEUROLOGIC: Denies numbness, tingling, headacbe or weakness. ENDOCRINE: Denies fatigue, weight change, polydipsia or polyurina. GENITOURINARY: Denies burning, hematuria or urgency with micturation. HEMATOLOGIC: Denies history of anemia or bleeding. PHYSICAL EXAMINATION Blood pressure 158/101 heart rate 108 afebrile and maintaining oxygen saturation on room air. CONSTITUTIONAL: No apparent distress. HEENT: Head is normocephalic. Pupils are equal, round. Sclerae anicteric. Mucous membranes of the mouth are moist. No JVD. No carotid bruit. CHEST EXAMINATION: Lungs are clear to auscultation. No chest wall tenderness is noted on palpation or with deep breathing. HEART EXAMINATION: Irregular rate and rhythm. S1, S2 heard. No murmurs, gallops or rub. ABDOMEN: Soft, nontender. Positive bowel sounds. EXTREMITIES: 2+ peripheral pulses, no lower extremity edema and no calf tenderness. NEUROLOGIC EXAMINATION: Patient is awake, alert and oriented x3. ASSESSMENT Acute CVA Paroxysmal atrial fibrillation Hypertension Chronic kidney disease Nonischemic cardiomyopathy Chronic systolic heart failure Medical noncompliance PLAN Continue eliquis for thromboembolic protection. Beta blockers added for rate control. No TERRY or ARB at this time due to renal function. Clinically he is euvolemic with no evidence of fluid overload clinically or symptoms of heart failure. Recommend discontinuation of IV lasix. Thank you kindly for this consultation. Nurse Practitioner note has been reviewed, I agree with a documented findings and plan of care. Patient was seen and examined. Past Medical History Past Medical History: Atrial Fibrillation, Cancer, Hypertension, Renal Disease Additional Past Medical History / Comment(s): HX. BILAT HYDRONEPHROSIS, hx. perforated diverticulum, hx. of A-fib in past-says doesn't have anymore-took xarelto until few months ago, hx. prostate cancer-tx. w/cryotherapy History of Any Multi-Drug Resistant Organisms: None Reported Past Surgical History: Back Surgery, Bowel Resection Additional Past Surgical History / Comment(s): SX TO RELIEVE BLEEDING IN THE HEAD from head injury @[facility],. COLOSTOMY 2015 then reversal Past Anesthesia/Blood Transfusion Reactions: No Reported Reaction Past Psychological History: No Psychological Hx Reported Smoking Status: Never smoker Past Alcohol Use History: Occasional Past Drug Use History: None Reported - Past Family History Father Family Medical History: AFIB, Coronary Artery Disease (CAD), Prostate Disorder Medications and Allergies Home Medications Medication Instructions Recorded Confirmed Type No Known Home Medications 03/01/21 03/01/21 History Allergies Allergy/AdvReac Type Severity Reaction Status Date / Time divalproex sodium Allergy Rash/Hives Verified 03/01/21 09:46 [From Depakote] Physical Exam Vitals: Vital Signs Temp Pulse Pulse Resp BP BP Pulse Ox 03/02/21 08:05 97.9 F 108 H 16 158/101 99 03/02/21 08:00 108 H 16 03/02/21 04:00 97.8 F 63 16 126/80 99 03/02/21 02:00 68 18 03/02/21 00:00 68 18 123/71 98 03/01/21 20:00 98.1 F 59 L 16 124/80 99 03/01/21 16:00 56 L 16 178/87 99 03/01/21 14:00 104 H 16 03/01/21 12:44 104 H 16 154/97 97 03/01/21 12:00 98.2 F 117 H 17 148/95 99 03/01/21 11:00 114 H 16 145/94 99 Intake and Output 03/01/21 03/02/21 03/02/21 22:59 06:59 14:59 Intake Total 240 Output Total 1 Balance -1 240 Intake: Oral 240 Output: Urine 1 Other: Voiding Method Toilet Toilet Toilet Self-Catheterization Self-Catheterization Self-Catheterization Weight 77 kg Results 03/01/21 09:36 03/02/21 07:32 Cardiac Enzymes 03/01/21 Range/Units 15:04 Troponin I 0.032 (0.000-0.034) ng/mL Comprehensive Metabolic Panel 03/02/21 Range/Units 07:32 Sodium 139 (137-145) mmol/L Potassium 5.3 H (3.5-5.1) mmol/L Chloride 109 H (98-107) mmol/L Carbon Dioxide 23 (22-30) mmol/L BUN 21 H (9-20) mg/dL Creatinine 1.48 H (0.66-1.25) mg/dL Glucose 95 (74-99) mg/dL Calcium 11.1 H (8.4-10.2) mg/dL Current Medications Generic Name Dose Route Start Last Admin Trade Name Freq PRN Reason Stop Dose Admin Apixaban 5 mg 03/01/21 21:30 03/02/21 08:07 Apixaban 5 Mg Tab PO 5 mg BID LYNN Administration Furosemide 40 mg 03/02/21 10:15 Furosemide 10 Mg/Ml 4 Ml Vial IV Q12HR LYNN Metoprolol Tartrate 50 mg 03/01/21 17:00 03/02/21 08:07 Metoprolol Tartrate 50 Mg Tab PO 50 mg BID LYNN Administration Intake and Output 03/01/21 03/02/21 03/02/21 22:59 06:59 14:59 Intake Total 240 Output Total 1 Balance -1 240 Intake: Oral 240 Output: Urine 1 Other: Voiding Method Toilet Toilet Toilet Self-Catheterization Self-Catheterization Self-Catheterization Weight 77 kg 03/01/21 09:36 03/02/21 07:32
--- NOTE | 2021-03-02 13:32 | P.PN ---
Subjective Patient is admitted for cerebrovascular accident involving the motor speech area. 65-year-old male came in with complains of speech abnormality unable to quit started today morning when he woke up onset of symptoms is not clear as he woke up with the symptoms. Patient doesn't have any weakness tingling numbness headache nausea vomiting. Patient does have history of atrial fibrillation has not been taking his eliquis, patient was started on Cardizem patient was given brillianta, with concerns of post stroke hemorrhage patient is not being started on anticoagulation now neurology evaluated the patient patient was started on anticoagulation and recommending to start him on Eliquis follows after Brady. Echocardiogram will be obtained patient will undergo MRI. Patient had a normal echocardiogram in the past 03/02/2021 Patient had an MRI of the brain which showed subacute infarct involving the insular and operculum in the left side. Patient had an echocardiogram which showed ejection fraction of around 20-25%. Patient remains in A. fib heart rate is better controlled today patient is on the Lopressor 50 twice a day. Patient was started on Eliquis as today. Patient creatinine came down from 1.6-1.48. Patient chest x-ray is consistent with pulmonary edema patient was started on IV Lasix. Review of systems significantly limited by his speech abnormality All inpatient medications were reviewed and appropriate changes in these medications as dictated in the interval history and assessment and plan. Objective - Vital Signs Vital signs: Vital Signs Temp 97.8 F 03/02/21 12:00 Pulse 105 H 03/02/21 12:00 Resp 16 03/02/21 12:00 BP 134/73 03/02/21 12:00 Pulse Ox 98 03/02/21 12:00 Intake & Output 03/01/21 03/02/21 03/02/21 18:59 06:59 18:59 Intake Total 480 Output Total 1 Balance -1 480 Weight 79.379 kg 77 kg Intake: Oral 480 Output: Urine 1 Other: Voiding Method Toilet Toilet Toilet Self-Catheterization Self-Catheterization Self-Catheterization - Exam PHYSICAL EXAMINATION: GENERAL: The patient is alert and oriented x3, not in any acute distress. Well developed, well nourished. HEENT: Pupils are round and equally reacting to light. EOMI. No scleral icterus. No conjunctival pallor. Normocephalic, atraumatic. No pharyngeal erythema. No thyromegaly. CARDIOVASCULAR: S1 and S2 present. No murmurs, rubs, or gallops. PULMONARY: Chest is clear to auscultation, no wheezing or crackles. ABDOMEN: Soft, nontender, nondistended, normoactive bowel sounds. No palpable organomegaly. MUSCULOSKELETAL: No joint swelling or deformity. EXTREMITIES: No cyanosis, clubbing, or pedal edema. NEUROLOGICAL: Patient has a Broca's aphasia without any focal deficits SKIN: No rashes. - Labs CBC & Chem 7: 03/01/21 09:36 03/02/21 07:32 Labs: Abnormal Lab Results - Last 24 Hours (Table) 03/02/21 Range/Units 07:32 Potassium 5.3 H (3.5-5.1) mmol/L Chloride 109 H (98-107) mmol/L BUN 21 H (9-20) mg/dL Creatinine 1.48 H (0.66-1.25) mg/dL Calcium 11.1 H (8.4-10.2) mg/dL Assessment and Plan Plan: Acute embolic CVA involving the left middle cerebral artery territory leading to Broca's aphasia, MRA results as mentioned above stroke in the left insular area. CT of the head and CT angios the head and neck did not show any significant occlusion but did show a 4 mm fusiform dilatation or aneurysm the distal basilar artery. Atrial fibrillation patient is presently rapid ventricular rate heart rate is still bit elevated patient will be continued on metoprolol and Eliquis -Congestive heart failure chronic systolic dysfunction with EF of around 20-25% with acute exacerbation patient was started on IV Lasix. -Noncompliance with medications -Hypertension - chronic kidney disease stage III hypertensive nephrosclerosis
[2021-03-02 13:57] LABS: Chol/HDL Ratio 2.21; LDL Cholesterol,Calculated 67.8 mg/dL (0.0-131.0); VLDL Calculation 17.2 mg/dL (5.00-40.00)
[2021-03-02 16:17] LABS: Hemoglobin A1C 5.7 % (4.0-6.0)
--- NOTE | 2021-03-02 18:44 | CT ---
EXAMINATION TYPE: CT brain wo con DATE OF EXAM: 03/02/2021 COMPARISON: 03/01/2021 HISTORY: Aphasia. CT DLP: 1121.[address] of the brain was performed. The ventricles, basal cisterns and sulci overlying the cerebral convexities demonstrate mild enlargem ent. There is no evidence for intracranial hemorrhage or sulcal effacement. There is decreased attenuation about the periventricular white matter and deep white matter of both c erebral hemispheres, compatible with chronic small vessel ischemia. Differential diagnosis does inclu de demyelination. No mass effects are seen.No midline shift. Osseous calvarium is intact. If symptoms persist consider MRI. IMPRESSION: 1. Age related atrophic and chronic small vessel ischemic change without acute intracranial process s een at this time.
[2021-03-02] MEDS ORDERED: ASPIRIN 325 MG TAB PO SCH (19:00)
[2021-03-03 04:22] VITALS: RESP 16
[2021-03-03] MEDS: FUROSEMIDE 10 MG/ML 4 ML VIAL IV SCH (08:42)
[2021-03-03] MEDS: METOPROLOL TARTRATE 50 MG TAB PO SCH (08:42)
[2021-03-03] MEDS: APIXABAN 5 MG TAB PO SCH (08:42)
[2021-03-03 08:47] LABS: Calcium 10.5 mg/dL (8.4-10.2); Potassium 4.9 mmol/L (3.5-5.1)
--- NOTE | 2021-03-03 08:50 | P.PN ---
Subjective Progress Note Date: 03/02/21 Patient was seen for follow-up. As I came to see the patient, it appears patient has got much worse sometimes in the last 24 hours. Patient was standing, smiling, trying to communicate with visitors who were present. Patient not able to communicate, has significant worsening of his aphasia. Patient denies headache. Denies any numbness tingling or focal weakness. Objective - Vital Signs Vital signs: Vital Signs Temp 98.2 F 03/02/21 16:12 Pulse 99 03/02/21 16:12 Resp 16 03/02/21 16:12 BP 135/90 03/02/21 16:12 Pulse Ox 100 03/02/21 16:12 Intake & Output 03/02/21 03/02/21 03/03/21 06:59 18:59 06:59 Intake Total 720 Output Total 1 500 Balance -1 220 Weight 77 kg Intake: Oral 720 Output: Urine 1 500 Other: Voiding Method Toilet Toilet Self-Catheterization Self-Catheterization - Exam Patient is an elderly male, standing inside his room, trying to communicate. Patient having severe expressive aphasia. Not able to express words, name and repeat. I had patient sit on the recliner, and then he was able to repeat short sentences. Patient had good comprehension, could follow directions well. Patient could not tell me his age. Very minimal word output noted with some slurring. Patient also having difficulty with falling written commands, as he was not able to stick out his tongue. It took a few attempts before he was able to show me his thumb. Patient able to write some, with significant errors. Patient is alert awake. On cranial examination, pupils are equal, round and reacting to light, visual grande are full on confrontation with no neglect on double simultaneous stimulation, extraocular muscles are intact with no nystagmus. Face appeared mostly symmetric, with no drooling, tongue protrudes to the midline. Palatal elevation and sensation normal, hearing and shoulder shrug normal, facial sensation normal. Shoulder shrug normal. On muscle strength testing, there is no pronator drift and the strength is normal in arms and legs distally and proximally. Deep tendon reflexes are 1+ to 2, symmetric and plantars downgoing. Sensory to touch is equal with no neglect on double simultaneous stimulation. Cerebellar function showed no ataxia for [id number] testing. No dysd iadochokinesia. Tone and bulk of muscles normal. Gait normal. On general examination, there is no carotid bruit or murmur, S1-S2 audible. Abdomen is soft nontender. Chest is clear. Peripheral pulses are present. No edema. - Labs CBC & Chem 7: 03/01/21 09:36 03/03/21 08:06 Labs: Abnormal Lab Results - Last 24 Hours (Table) 03/02/21 03/02/21 Range/Units 07:32 07:32 Potassium 5.3 H (3.5-5.1) mmol/L Chloride 109 H (98-107) mmol/L BUN 21 H (9-20) mg/dL Creatinine 1.48 H (0.66-1.25) mg/dL Calcium 11.1 H (8.4-10.2) mg/dL HDL Cholesterol 70.0 H (40.0-60.0) mg/dL Assessment and Plan Assessment: * Patient had probable another stroke over the last 24 hours, with development of severe expressive aphasia. Current NIH stroke scale is 5 (Answered 1 out of 2 questions correctly (1), moderate to severe aphasia (2), moderate dysarthria (2). Rule out intracranial bleed. Rule out recurrence of another stroke or extension of previous stroke. Patient's NIH stroke scale was 2 yesterday when I examined. 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 * History of craniotomy due to intracranial bleed 8 or 9 years ago Plan: * Patient underwent stat computed tomography scan of the head to rule out bleed or stroke extension. It revealed a vague area of decreased attenuation within the left frontal lobe, which may reflect an area of new cortical insult. Correlate clinically. No evidence of intracranial bleed. This is a new stroke as compared to the MRI from yesterday. Apparently patient was started on Eliquis 5 mg twice a day yesterday at 9:30 PM. Uncertain what time the second stroke happened. I spoke to the nurse, who states that she arrived this morning at 7:30, and patient has been having expressive aphasia since she took over in the morning. We will try to contact the cardiology staff, who saw the patient earlier today, and did not mention about expressive aphasia in their note. Although patient's stroke has progressed, but probably patient has a thrombus in the left atrium, which is potential for recurrence of strokes. Therefore given the risks and benefits, Eliquis will be continued, as benefits outweigh the risks of hemorrhagic conversion. We will not start h eparin because of risk of hemorrhagic conversion from recurrent strokes. Patient was given aspirin 324 mg stat. Patient will be maintained on aspirin 81 mg daily as well. EMBER could be considered. * MRI of the brain from 03/01/2021 showed subacute infarct involving the insula and operculum of the left along the sylvian fissure. * 2-D echo revealed normal left-ventricular size. Borderline concentric LVH. Severe global hypokinesis of left ventricle. Overall left-ventricular systolic function is severely impaired with EF between 20-25%. Left atrium is mildly dilated. * Hemoglobin A1c 5.7 * Fasting lipid panel with cholesterol 155, LDL 67, HDL 70 and triglycerides 86. We will start Lipitor 10 mg daily. * Close neuro checks. * Blood pressure control, to be maintained less than 185 systolic. Hold blood pressure medications if systolic blood pressure <150, for the next 24 hours. Time with Patient: Greater than 30
[2021-03-03] MEDS ORDERED: ASPIRIN 81 MG PO SCH (09:00)
[2021-03-03] MEDS ORDERED: METOPROLOL TARTRATE 50 MG TAB PO STA (09:48)
--- NOTE | 2021-03-03 11:45 | P.PN ---
Subjective HISTORY OF PRESENTING ILLNESS This is a pleasant 65-year-old male past medical history significant for proximal atrial fibrillation, hypertension, chronic kidney disease and nonischemic cardiomyopathy secondary to A. fib. He is to follow-up in the office with Dr. Castellon however has not been there since 2019. The patient states he has not taken any of his medications since that time or seen any other physician. Most recent echocardiogram obtained in 2018 revealed impaired LV systolic function with ejection fraction 35-45%. He presented to the hospital on this admission secondary to aphasia and has been diagnosed with a left MCA CVA secondary to atrial fibrillation. Anticoagulation has been initiated for the primary care team and advice of neurology. Echocardiogram on this admission revealed severely impaired LV systolic function with ejection fraction 20-25%. EKG reveals atrial fibrillation with heart rate of 130. He was on Cardizem infusion which has since been discontinued. Telemetry tracings indicate persis tent atrial fibrillation with variable ventricular rates. He is seen and examined sitting up in the chair in no acute distress. He has no symptoms of chest discomfort, shortness of breath, dizziness or palpitations. He states he exercises daily and never has symptoms of angina. He does notice over the previous one year he has become more easily fatigued. 03/03/2021 Patient seen and examined sitting up in a recliner no acute distress. He is answering questions with one word yes or no but not able to give any detail. Repeat CT last night revealed a vague area of decreased attenuation within the left frontal lobe which may reflect a new cortical insult. He denies chest pain, shortness of breath, dizziness or palpitations. Blood pressure 141/99 heart rate 109 afebrile maintaining oxygen saturation on room air. PHYSICAL EXAMINATION CONSTITUTIONAL: No apparent distress. HEENT: Head is normocephalic. Pupils are equal, round. Sclerae anicteric. Mucous membranes of the mouth are moist. No JVD. No carotid bruit. CHEST EXAMINATION: Lungs are clear to auscultation. No chest wall tenderness is noted on palpation or with deep breathing. HEART EXAMINATION: Irregular rate and rhythm. S1, S2 heard. No murmurs, gallops or rub. EXTREMITIES: 2+ peripheral pulses, no lower extremity edema and no calf tenderness. ASSESSMENT Acute CVA Expressive aphasia Paroxysmal atrial fibrillation Hypertension Chronic kidney disease Non-ischemic cardiomyopathy Chronic systolic heart failure Medical noncompliance PLAN Discussed with Dr. Rios in detail. EMBER will not change the management at this point. Continue eliquis for thromboembolic protection. Obtain limited echo with bubble study. Heart rates have been between 80-110, lopressor on hold per neurology to maintain blood pressure above [address] Swann, lopressor can be resumed. Nurse Practitioner note has been reviewed, I agree with a documented findings and plan of care. Patient was seen and examined. Objective - Vital Signs Vital signs: Vital Signs Temp 97.4 F L 03/03/21 08:38 Pulse 109 H 03/03/21 08:38 Resp 16 03/03/21 08:38 BP 141/99 03/03/21 08:38 Pulse Ox 100 03/03/21 08:38 Intake & Output 03/02/21 03/03/21 03/03/21 18:59 06:59 18:59 Intake Total 720 Output Total 500 Balance 220 Weight 74.4 kg Intake: Oral 720 Output: Urine 500 Other: Voiding Method Toilet Toilet Toilet Self-Catheterization Self-Catheterization Self-Catheterization # Voids 1 - Labs CBC & Chem 7: 03/01/21 09:36 03/03/21 08:06 Labs: Abnormal Lab Results - Last 24 Hours (Table) 03/02/21 03/02/21 03/03/21 Range/Units 07:32 07:32 08:06 Potassium 5.3 H (3.5-5.1) mmol/L Chloride 109 H 109 H (98-107) mmol/L BUN 21 H 31 H (9-20) mg/dL Creatinine 1.48 H 1.76 H (0.66-1.25) mg/dL Glucose 140 H (74-99) mg/dL Calcium 11.1 H 10.5 H (8.4-10.2) mg/dL HDL Cholesterol 70.0 H (40.0-60.0) mg/dL
[2021-03-03 12:19] VITALS: BP 127/79; PULSE 90; TEMP 97.6
--- NOTE | 2021-03-03 12:55 | P.DS ---
Providers Date of admission: 03/01/21 11:01 Attending physician: Mario Diamond Consults: 03/01/21 11:03 Consult Physician Routine Consulting Provider: Bhavya Swann Consult Reason/Comments: cva Do you want consulting provider notified?: Yes 03/02/21 10:03 Consult Physician Routine Consulting Provider: Jalil Park Consult Reason/Comments: low EF, a-fib Do you want consulting provider notified?: Yes Primary care physician: Stated None Hospital Course: 65-year-old male came in with complains of speech abnormality unable to quit started today morning when he woke up onset of symptoms is not clear as he woke up with the symptoms. Patient doesn't have any weakness tingling numbness headache nausea vomiting. Patient does have history of atrial fibrillation has not been taking his eliquis, patient was started on Cardizem patient was given brillianta, with concerns of post stroke hemorrhage patient is not being started on anticoagulation now neurology evaluated the patient patient was started on anticoagulation and recommending to start him on Eliquis follows after Brady. Echocardiogram will be obtained patient will undergo MRI. Patient had a normal echocardiogram in the past 03/02/2021 Patient had an MRI of the brain which showed subacute infarct involving the insular and operculum in the left side. Patient had an echocardiogram which showed ejection fraction of around 20-25%. Patient remains in A. fib heart rate is better controlled today patient is on the Lopressor 50 twice a day. Patient was started on Eliquis as today. Patient creatinine came down from 1.6-1.48. Patient chest x-ray is consistent with pulmonary edema patient was started on IV Lasix. 03/03/2021 Since the patient does speech was bit was later in the day as today it was believed patient had another stroke. CT of the head was negative. Patient is rate controlled at this time. Patient can serum creatinine is bit worse today patient will be discharged on 40 mg of oral Lasix with close follow-up with the primary care physician, neurology and PCP as an outpatient. Discussed with his primary care physician regarding the transition of care. Repeat basic metabolic profile will be obtained in about 3 days patient still has significant speech problems. Patient wasn't creatinine is 1.76. Patient is not diabetic PHYSICAL EXAMINATION: GENERAL: The patient is alert and oriented x3, not in any acute distress. Well developed, well nourished. HEENT: Pupils are round and equally reacting to light. EOMI. No scleral icterus. No conjunctival pallor. Normocephalic, atraumatic. No pharyngeal erythema. No thyromegaly. CARDIOVASCULAR: S1 and S2 present. No murmurs, rubs, or gallops. PULMONARY: Chest is clear to auscultation, no wheezing or crackles. ABDOMEN: Soft, nontender, nondistended, normoactive bowel sounds. No palpable organomegaly. MUSCULOSKELETAL: No joint swelling or deformity. EXTREMITIES: No cyanosis, clubbing, or pedal edema. NEUROLOGICAL: Patient has a Broca's aphasia without any focal deficits SKIN: No rashes. Assessment and Plan Plan: Acute embolic CVA involving the left middle cerebral artery territory leading to Broca's aphasia, MRA results as mentioned above stroke in the left insular area. CT of the head and CT angios the head and neck did not show any significant occlusion but did show a 4 mm fusiform dilatation or aneurysm the distal basilar artery. Neurology is recommending both Eliquis and aspirin. Atrial fibrillation patient is presently rapid patient is presently rate controlled will be continued on metoprolol and Eliquis. -Congestive heart failure chronic systolic dysfunction with EF of around 20-25% with acute exacerbation patient was started on IV Lasix. Patient will be started on low-dose of TERRY inhibitor as well -Noncompliance with medications -Hypertension - chronic kidney disease stage III hypertensive nephrosclerosis Patient Condition at Discharge: Critical Plan - Discharge Summary Discharge Rx Participant: No New Discharge Prescriptions: New Aspirin 81 mg PO DAILY #30 chew Apixaban [Eliquis] 5 mg PO BID #60 tab Metoprolol Tartrate [Lopressor] 50 mg PO BID #60 tab Furosemide [Lasix] 40 mg PO DAILY #30 tablet Atorvastatin [Lipitor] 10 mg PO HS #30 tab Lisinopril [Prinivil] 5 mg PO DAILY #30 tab Discharge Medication List Apixaban [Eliquis] 5 mg PO BID #60 tab 03/03/21 [Rx] Aspirin 81 mg PO DAILY #30 chew 03/03/21 [Rx] Atorvastatin [Lipitor] 10 mg PO HS #30 tab 03/03/21 [Rx] Furosemide [Lasix] 40 mg PO DAILY #30 tablet 03/03/21 [Rx] Lisinopril [Prinivil] 5 mg PO DAILY #30 tab 03/03/21 [Rx] Metoprolol Tartrate [Lopressor] 50 mg PO BID #60 tab 03/03/21 [Rx] Follow up Appointment(s)/Referral(s): None,Stated [Primary Care Provider] - 1-2 days Andrew Medellin MD [STAFF PHYSICIAN] - Anum Shen MD [REFERRING] - 1 Week Activity/Diet/Wound Care/Special Instructions: Speech therapy - Yesenia Akins - [phone] - speech therapy department will contact patient's POA to set up appointments Discharge Disposition: HOME SELF-CARE
--- NOTE | 2021-03-03 13:00 | ECHOF ---
Referral Reason:bubble study MEASUREMENTS -------- HEIGHT: 182.9 cm WEIGHT: 77.1 kg BP: 141/99 RVIDd: 2.9 cm (< 3.3) RAP: 5.00 mmHg RVSP: 28.15 mmHg FINDINGS -------- Atrial fibrillation. Limited Study Overall left ventricular systolic function is severely impaired with, an EF between 20 - 25 %. Interatrial and interventricular septum intact. Negative saline bubble study No shunt on atrial l evel There is mild aortic regurgitation. There is mild aortic stenosis present. Mild mitral annular calcification present. Mild mitral regurgitation is present. Mild tricuspid regurgitation present. Right ventricular systolic pressure is normal at < 35 mmHg. Trace/mild (physiologic) pulmonic regurgitation. There is no pericardial effusion. CONCLUSIONS -------- 1. Atrial fibrillation. 2. Limited Study 3. Overall left ventricular systolic function is severely impaired with, an EF between 20 - 25 %. 4. Interatrial and interventricular septum intact. 5. Negative saline bubble study 6. No shunt on atrial level 7. There is mild aortic regurgitation. 8. There is mild aortic stenosis present. 9. Mild mitral annular calcification present. 10. Mild mitral regurgitation is present. 11. Mild tricuspid regurgitation present. 12. Trace/mild (physiologic) pulmonic regurgitation. 13. There is no pericardial effusion. FERRY CAPTAIN: Ayesha Brown RDCS
[2021-03-03] MEDS ORDERED: ATORVASTATIN 10 MG TAB PO SCH (21:00)
[2021-03-03] MEDS ORDERED: FUROSEMIDE 10 MG/ML 2 ML VIAL IV SCH (21:00)
--- NOTE | 2021-03-06 11:32 | P.PN ---
Subjective Progress Note Date: 03/03/21 Patient was seen for follow-up. Patient is slightly better as compared to yesterday. Please refer to examination section. Offers no complaints. Denies headache. Denies any numbness tingling or any visual disturbance. Still with significant expressive aphasia. I spoke to LEROY ParkerC, who saw the patient yesterday at around 10:51 AM. She mentioned me that patient was able to speak very well, with some slurring, but able to provide history, apparently as he did for me the day prior. Patient was seen by speech therapist at around 12:30 when patient was having severe expressive speech difficulty. Apparently stroke happened sometimes around that time. Patient was already on Eliquis, and has received 2 doses of medication at 9:30 PM last night, and 9:30 AM this morning. Patient still had another ischemic event leading to expressive aphasia. Patient was for sure not a candidate for TPA or mechanical thrombectomy. Objective - Vital Signs Vital signs: Vital Signs Temp 97.6 F 03/03/21 12:16 Pulse 90 03/03/21 12:16 Resp 16 03/03/21 12:16 BP 127/79 03/03/21 12:16 Pulse Ox 100 03/03/21 12:16 Intake & Output 03/03/21 03/03/21 03/04/21 06:59 18:59 06:59 Intake Total 360 Balance 360 Weight 74.4 kg Intake: Oral 360 Other: Voiding Method Toilet Toilet Self-Catheterization Self-Catheterization # Voids 1 - Exam Patient is an elderly male, in no acute distress. Patient still has expressive aphasia. Patient states the month is April. Later on it appeared patient was trying to tell his month. He knows that he was born on [birth year] and year was [birth year]. He knows his age 65 although took some time to say it allowed. He was able to protrude his tongue better. Patient able to follow written directions much better than yesterday. Also able to point to the door, window and ceiling without difficulty. I asked him to write "today is Saturday". Patient wrote "Today at Saturday". Apparently yesterday when I asked him to write today is , patient wrote "February". I had just asked him the current month before I had asked him to write "today is ". Indicating perseveration. Patient is alert awake. On cranial examination, pupils are equal, round and reacting to light, visual grande are full on confrontation with no neglect on double simultaneous stimulation, extraocular muscles are intact with no nystagmus. Face appeared mostly symmetric, with no drooling, tongue protrudes to the midline. Palatal elevation and sensation normal, hearing and shoulder shrug normal, facial sensation normal. Shoulder shrug normal. On muscle strength testing, there is no pronator drift and the strength is normal in arms and legs distally and proximally. Deep tendon reflexes are 1+ to 2, symmetric and plantars downgoing. Sensory to touch is equal with no neglect on double simultaneous stimulation. Cerebellar function showed no ataxia for [id number] testing. No dys diadochokinesia. Tone and bulk of muscles normal. Gait normal. On general examination, there is no carotid bruit or murmur, S1-S2 audible. Abdomen is soft nontender. Chest is clear. Peripheral pulses are present. No edema. - Labs CBC & Chem 7: 03/01/21 09:36 03/03/21 08:06 Labs: Abnormal Lab Results - Last 24 Hours (Table) 03/03/21 Range/Units 08:06 Chloride 109 H (98-107) mmol/L BUN 31 H (9-20) mg/dL Creatinine 1.76 H (0.66-1.25) mg/dL Glucose 140 H (74-99) mg/dL Calcium 10.5 H (8.4-10.2) mg/dL Assessment and Plan Assessment: * Recurrent ischemic strokes (x2) most likely embolic from atrial fibrillation. 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 * History of craniotomy due to intracranial bleed 8 or 9 years ago Plan: * Patient underwent limited 2-D echo today, which again revealed atrial fibrillation. Systolic function is severely impaired with EF between 20-25%. Interatrial and interventricular septum intact. Negative saline bubble study. No shunt on atrial level. Moderate aortic regurgitation. No indication for EMBER, as it will not change the management. * Patient will be discharged on Apixaban 5 mg twice a day and aspirin 81 mg daily. * MRI of the brain from 03/01/2021 showed subacute infarct involving the insula and operculum of the left along the sylvian fissure. * 2-D echo revealed normal left-ventricular size. Borderline concentric LVH. Severe global hypokinesis of left ventricle. Overall left-ventricular systolic function is severely impaired with EF between 20-25%. Left atrium is mildly dilated. * Hemoglobin A1c 5.7 * Fasting lipid panel with cholesterol 155, LDL 67, HDL 70 and triglycerides 86. We will start Lipitor 10 mg daily. * Optimize blood pressure control. * Neurologically clear for discharge. Patient need to follow-up with a neurologist in 1-2 weeks. * Discussed with Dr. Diamond in detail. Time with Patient: Greater than 30
== END 2021-03-03 14:44 | disposition home or self-care (01) | DRG 64 ==
LOC: EC 09:21 → 3SCARD 11:01
PROVIDERS: ADMIT Internal Medicine; ATTEND Internal Medicine
DX: I63.412 Cerebral infarction due to embolism of left middle cerebral artery (principal); I50.23 Acute on chronic systolic (congestive) heart failure; I13.0 Hypertensive heart and chronic kidney disease with heart failure and stage 1 through stage 4 chronic kidney disease, or unspecified chronic kidney disease; I48.19 Other persistent atrial fibrillation; I42.8 Other cardiomyopathies; N18.30 Chronic kidney disease, stage 3 unspecified; R29.705 NIHSS score 5; R29.810 Facial weakness; R47.01 Aphasia; T45.516A Underdosing of anticoagulants, initial encounter; I67.1 Cerebral aneurysm, nonruptured; Z20.822 Contact with and (suspected) exposure to COVID-19; Z82.49 Family history of ischemic heart disease and other diseases of the circulatory system; Z91.19 Patient's noncompliance with other medical treatment and regimen; Z91.128 Patient's intentional underdosing of medication regimen for other reason; Z87.820 Personal history of traumatic brain injury; Z85.46 Personal history of malignant neoplasm of prostate; Z88.8 Allergy status to other drugs, medicaments and biological substances; Z80.42 Family history of malignant neoplasm of prostate
CPT/HCPCS: 36415; 70450; 70496; 70498; 70551; 71046; 80048; 80053; 80061; 83036; 83880; 84484; 85025; 85610; 85730; 87635; 93005; 93306; 93308; 96361; 96365; 99291

== ENCOUNTER 2021-03-12 09:40 | Inpatient (IN) | payer MEDICARE ==
[2021-03-12] MEDS ORDERED: SODIUM CHLORIDE 0.9% 1,000 ML IV STA (09:48)
[2021-03-12] MEDS ORDERED: DILTIAZEM DRIP BOLUS FROM BAG 1 MG SOLN IV ONE (09:48)
[2021-03-12 09:51] LABS: Glucose,Whole Blood 169 mg/dL (75-99)
--- NOTE | 2021-03-12 09:52 | ED ---
Arrhythmia/Palpitations HPI - General Stated Complaint: slurred speech Time Seen by Provider: 03/12/21 09:42 - History of Present Illness Initial Comments: This is a 65-year-old male with a history of atrial fibrillation and a history of recent stroke treatment with TPA who presents with complaints of nausea this morning he does have residual slurred speech from his stroke but no other peripheral residual effects he states that. He was nauseated but upon examination was found to be in a rapid heart rate. He denies any overt chest pain or shortness of breath did have some dizziness and lightheadedness. No weakness to his arms or legs no other complaints or modifying factors at this time. He denies being on any blood thinners - Related Data Previous Rx's Medication Instructions Recorded Apixaban [Eliquis] 5 mg PO BID #60 tab 03/03/21 Aspirin 81 mg PO DAILY #30 chew 03/03/21 Atorvastatin [Lipitor] 10 mg PO HS #30 tab 03/03/21 Furosemide [Lasix] 40 mg PO DAILY #30 tablet 03/03/21 Lisinopril [Prinivil] 5 mg PO DAILY #30 tab 03/03/21 Metoprolol Tartrate [Lopressor] 50 mg PO BID #60 tab 03/03/21 Allergies Allergy/AdvReac Type Severity Reaction Status Date / Time divalproex sodium Allergy Rash/Hives Verified 03/12/21 10:22 [From Serafin] Review of Systems ROS Statement: Those systems with pertinent positive or pertinent negative responses have been documented in the HPI. ROS Other: All systems not noted in ROS Statement are negative. Past Medical History Past Medical History: Atrial Fibrillation, Cancer, Hypertension, Renal Disease Additional Past Medical History / Comment(s): HX. BILAT HYDRONEPHROSIS, hx. perforated diverticulum, hx. of A-fib in past-says doesn't have anymore-took xarelto until few months ago, hx. prostate cancer-tx. w/cryotherapy History of Any Multi-Drug Resistant Organisms: None Reported Past Surgical History: Back Surgery, Bowel Resection Additional Past Surgical History / Comment(s): SX TO RELIEVE BLEEDING IN THE HEAD from head injury @[facility],. COLOSTOMY 2015 then reversal Past Anesthesia/Blood Transfusion Reactions: No Reported Reaction Past Psychological History: No Psychological Hx Reported Smoking Status: Never smoker Past Alcohol Use History: Occasional Past Drug Use History: None Reported - Past Family History Father Family Medical History: AFIB, Coronary Artery Disease (CAD), Prostate Disorder General Exam - General Exam Comments Initial Comments: This is a well-developed asthenic appearing male who is awake alert oriented 3 General appearance: alert, anxious Head exam: Present: atraumatic, normocephalic, normal inspection Eye exam: Present: normal appearance, PERRL, EOMI. Absent: scleral icterus, conjunctival injection, periorbital swelling ENT exam: Present: normal exam, mucous membranes moist Neck exam: Present: normal inspection, full ROM, other (No stridor JVD or bruits). Absent: tenderness, meningismus, lymphadenopathy Respiratory exam: Present: normal lung sounds bilaterally. Absent: respiratory distress, wheezes, rales, rhonchi, stridor Cardiovascular Exam: Present: tachycardia, irregular rhythm. Absent: systolic murmur, diastolic murmur, rubs, gallop, clicks GI/Abdominal exam: Present: soft, normal bowel sounds. Absent: distended, tenderness, guarding, rebound, rigid Extremities exam: Present: normal inspection, full ROM, normal capillary refill. Absent: tenderness, pedal edema, joint swelling, calf tenderness Back exam: Present: normal inspection Neurological exam: Present: alert, oriented X3, CN II-XII intact, other (Patient does demonstrate some delay in answering questions however he is able to phonate he states this is been normal for him since the stroke) Psychiatric exam: Present: normal affect, normal mood Skin exam: Present: warm, dry, intact, normal color. Absent: rash Course Vital Signs 03/12/21 03/12/21 03/12/21 09:46 10:14 11:02 Temperature 97.4 F L Pulse Rate 160 H 98 110 H Respiratory 18 18 18 Rate Blood Pressure 148/97 165/108 149/109 O2 Sat by Pulse 98 98 98 Oximetry 03/12/21 11:39 Temperature Pulse Rate 74 Respiratory 20 Rate Blood Pressure 152/116 O2 Sat by Pulse 97 Oximetry - Reevaluation(s) Reevaluation #1: 03/12/21 13:34 The patient has had some improvement but still remains tachycardic. Cardizem will be increased EKG Findings - EKG Results: EKG: interpreted by ALEXANDRE (Atrial fibrillation rate of 145 QRS 110 QT since QTC to 74/425 moderate voltage criteria for LVH nonspecific ST-T wave configuration) Medical Decision Making - Medical Decision Making I did discuss findings with the patient he still has A. fib with RVR. He does demonstrate evidence of hemoconcentration. I did discuss the case with Dr. Medellin. Patient be admitted with cardiology consultation - Lab Data Result diagrams: 03/12/21 10:00 03/12/21 10:00 Lab Results 03/12/21 03/12/21 03/12/21 Range/Units 09:47 10:00 10:00 WBC 13.8 H (3.8-10.6) k/uL RBC 6.88 H (4.30-5.90) m/uL Hgb 19.5 H* D (13.0-17.5) gm/dL Hct 60.7 H* (39.0-53.0) % MCV 88.3 (80.0-100.0) fL MCH 28.4 (25.0-35.0) pg MCHC 32.2 (31.0-37.0) g/dL RDW 14.7 (11.5-15.5) % Plt Count 355 (150-450) k/uL MPV 9.5 Neutrophils % 93 % Lymphocytes % 3 % Monocytes % 4 % Eosinophils % 0 % Basophils % 0 % Neutrophils # 12.8 H (1.3-7.7) k/uL Lymphocytes # 0.4 L (1.0-4.8) k/uL Monocytes # 0.5 (0-1.0) k/uL Eosinophils # 0.0 (0-0.7) k/uL Basophils # 0.0 (0-0.2) k/uL PT (9.0-12.0) sec INR (<1.2) APTT (22.0-30.0) sec Sodium 139 (137-145) mmol/L Potassium 5.7 H (3.5-5.1) mmol/L Chloride 110 H (98-107) mmol/L Carbon Dioxide 14 L (22-30) mmol/L Anion Gap 15 mmol/L BUN 75 H (9-20) mg/dL Creatinine 2.34 H (0.66-1.25) mg/dL Est GFR (CKD-EPI)AfAm 32 (>60 ml/min/1.73 sqM) Est GFR (CKD-EPI)NonAf 28 (>60 ml/min/1.73 sqM) Glucose 181 H (74-99) mg/dL POC Glucose (mg/dL) 169 H (75-99) mg/dL POC Glu Mechanical Door Repairer [place] Nena Yang Calcium 12.0 H (8.4-10.2) mg/dL Magnesium 2.4 H (1.6-2.3) mg/dL Total Bilirubin 0.7 (0.2-1.3) mg/dL AST 24 (17-59) U/L ALT 21 (4-49) U/L Alkaline Phosphatase 75 (38-126) U/L Troponin I (0.000-0.034) ng/mL Total Protein 7.5 (6.3-8.2) g/dL Albumin 4.4 (3.5-5.0) g/dL TSH 3.610 (0.465-4.680) mIU/L Coronavirus (PCR) (Not Detectd) 03/12/21 03/12/21 03/12/21 Range/Units 10:00 11:10 12:38 WBC (3.8-10.6) k/uL RBC (4.30-5.90) m/uL Hgb (13.0-17.5) gm/dL Hct (39.0-53.0) % MCV (80.0-100.0) fL MCH (25.0-35.0) pg MCHC (31.0-37.0) g/dL RDW (11.5-15.5) % Plt Count (150-450) k/uL MPV Neutrophils % % Lymphocytes % % Monocytes % % Eosinophils % % Basophils % % Neutrophils # (1.3-7.7) k/uL Lymphocytes # (1.0-4.8) k/uL Monocytes # (0-1.0) k/uL Eosinophils # (0-0.7) k/uL Basophils # (0-0.2) k/uL PT 10.9 (9.0-12.0) sec INR 1.0 (<1.2) APTT 18.8 L (22.0-30.0) sec Sodium (137-145) mmol/L Potassium (3.5-5.1) mmol/L Chloride (98-107) mmol/L Carbon Dioxide (22-30) mmol/L Anion Gap mmol/L BUN (9-20) mg/dL Creatinine (0.66-1.25) mg/dL Est GFR (CKD-EPI)AfAm (>60 ml/min/1.73 sqM) Est GFR (CKD-EPI)NonAf (>60 ml/min/1.73 sqM) Glucose (74-99) mg/dL POC Glucose (mg/dL) (75-99) mg/dL POC Glu Mechanical Door Repairer ID Calcium (8.4-10.2) mg/dL Magnesium (1.6-2.3) mg/dL Total Bilirubin (0.2-1.3) mg/dL AST (17-59) U/L ALT (4-49) U/L Alkaline Phosphatase (38-126) U/L Troponin I 0.033 (0.000-0.034) ng/mL Total Protein (6.3-8.2) g/dL Albumin (3.5-5.0) g/dL TSH (0.465-4.680) mIU/L Coronavirus (PCR) Not Detected (Not Detectd) - Radiology Data Radiology results: report reviewed, image reviewed Critical Care Time Critical Care Time: Yes Total Critical Care Time: 39 Critical Care Time: Critical care time including initial presentation with history physical labs x- rays multiple reevaluation the patient responsive therapy discuss with the patient. A findings review of old charting discussed with the patient's physician admission orders and documentation of the above Disposition Clinical Impression: Rapid atrial fibrillation, Dehydration, Renal insufficiency syndrome, History of recent stroke Disposition: ADMITTED IP TO THIS [facility] Condition: Fair Referrals: Andrew Medellin MD [Primary Care Provider] - 1-2 days
[2021-03-12] MEDS: DILTIAZEM 125 MG in SODIUM CHLORIDE 0.9% 100 ML IV SCH ×2 (10:02→21:14)
[2021-03-12 10:29] LABS: Basophils % (A) 0 %; Eosinophils % (A) 0 %; Lymphocytes # (A) 0.4 k/uL (1.0-4.8); Lymphocytes % (A) 3 %; MCH 28.4 pg (25.0-35.0); MCHC 32.2 g/dL (31.0-37.0); MCV 88.3 fL (80.0-100.0); Mean Platelet Volume 9.5; Monocytes # (A) 0.5 k/uL (0-1.0); Monocytes % (A) 4 %; Neutrophils # (A) 12.8 k/uL (1.3-7.7); Neutrophils % (A) 93 %; Platelet Count 355 k/uL (150-450); RBC 6.88 m/uL (4.30-5.90); RDW 14.7 % (11.5-15.5); WBC 13.8 k/uL (3.8-10.6)
--- NOTE | 2021-03-12 10:32 | XR ---
EXAMINATION TYPE: XR chest 2V DATE OF EXAM: 03/12/2021 COMPARISON: Chest x-ray 03/01/2021 HISTORY: Dysrhythmia TECHNIQUE: Frontal and lateral views of the chest are obtained. FINDINGS: There is no focal air space opacity, pleural effusion, or pneumothorax seen. The cardiac silhouette size is within normal limits. There are overlying leads. Aorta is ectatic. The osseous st ructures are intact. IMPRESSION: No acute cardiopulmonary process.
[2021-03-12 10:38] LABS: Albumin 4.4 g/dL (3.5-5.0); Magnesium 2.4 mg/dL (1.6-2.3); Potassium 5.7 mmol/L (3.5-5.1); Total Bilirubin 0.7 mg/dL (0.2-1.3); Total Protein 7.5 g/dL (6.3-8.2)
[2021-03-12 10:58] LABS: HGB 19.5 gm/dL (13.0-17.5)
[2021-03-12 10:59] LABS: HCT 60.7 % (39.0-53.0)
[2021-03-12 11:49] LABS: Partial Thromboplastin Time 18.8 sec (22.0-30.0)
[2021-03-12 11:50] LABS: Prothrombin Time 10.9 sec (9.0-12.0)
[2021-03-12] MEDS ORDERED: ONDANSETRON 4 MG TAB PO PRN (12:33)
[2021-03-12] MEDS ORDERED: ONDANSETRON 4 MG/2 ML VIAL IVP PRN (12:40)
[2021-03-12] MEDS ORDERED: NALOXONE 0.4 MG/ML 1 ML VIAL IV PRN (13:46)
[2021-03-12] MEDS ORDERED: METOCLOPRAMIDE 5 MG/ML 2 ML VIAL IVP STA (14:27)
[2021-03-12] MEDS ORDERED: fentaNYL (PF) 50 MCG/ML 2 ML AMP IV STA (14:54)
[2021-03-12] MEDS ORDERED: hydrALAZINE HCL 20 MG/ML 1 ML VIAL IVP PRN (15:53)
[2021-03-12] MEDS ORDERED: cloNIDine 0.1 MG/24HR PATCH TRANSDERM SCH (16:00)
[2021-03-12] MEDS ORDERED: cloNIDine 0.2 MG/24HR PATCH TRANSDERM SCH (16:00)
[2021-03-12 16:10] LABS: Appearance,Urine Cloudy (Clear); Bacteria,Urine Few /hpf; Bilirubin,Urine Negative (Negative); Blood,Urine Large (Negative); Color,Urine Yellow; Glucose,Urine (UA) Negative (Negative); Ketones,Urine Negative (Negative); Leukocyte Esterase,Urine Large (Negative); Mucus,Urine Rare /hpf; Nitrite,Urine Negative (Negative); Protein,Urine 2+ (Negative); RBC,Urine 3 /hpf (0-5); Specific Gravity,Urine 1.014 (1.001-1.035); Urobilinogen,Urine <2.0 mg/dL (<2.0); WBC,Urine >182 /hpf (0-5)
[2021-03-12 16:44] LABS: Glucose,Whole Blood 145 mg/dL (75-99)
[2021-03-12] MEDS: SODIUM CHLORIDE 0.9% 1,000 ML IV SCH (16:54)
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
[2021-03-12] MEDS: SODIUM BICARBONATE TAB 650 MG TAB PO SCH ×2 (17:14→21:12)
[2021-03-12] MEDS: LORazepam 0.5 MG TAB PO SCH ×2 (17:15→21:12)
[2021-03-12] MEDS: PANTOPRAZOLE 40 MG TABLET PO SCH (17:16)
--- NOTE | 2021-03-12 17:45 | US ---
EXAMINATION TYPE: US kidneys/renal and bladder DATE OF EXAM: 03/12/2021 COMPARISON: CT 2017, US 2017 CLINICAL HISTORY: Obstructive uropathy and urinary retention, R.F. EXAM MEASUREMENTS: Right Kidney: 8.9 x 4.6 x 4.1 cm Left Kidney: 10.4 x 4.6 x 4.4 cm Right Kidney: cortical thinning Left Kidney: cortical thinning, lobulated contour Bladder: not distended, edouard catheter Free fluid in pelvis There is no evidence for hydronephrosis at this point in time. No nephrolithiasis is seen. No shawn s are identified. The urinary bladder is anechoic. Bilateral ureteral jets are seen. IMPRESSION: There is cortical thinning and increased echogenicity in the renal cortex suggestive of medical renal disease. No evidence of obstruction. There is Edouard catheter in the bladder. Bladder is empty. There is some free fluid in the pelvis.
[2021-03-12 20:25] LABS: Glucose,Whole Blood 194 mg/dL (75-99)
[2021-03-12] MEDS ORDERED: APIXABAN 5 MG TAB PO SCH (21:00)
[2021-03-12] MEDS ORDERED: ATORVASTATIN 10 MG TAB PO SCH (21:00)
[2021-03-12] MEDS: METOPROLOL TARTRATE 50 MG TAB PO SCH (21:12)
[2021-03-13] MEDS ORDERED: LORazepam 0.5 MG TAB PO PRN (01:06)
[2021-03-13 01:07] LABS: Glucose,Whole Blood 114 mg/dL (75-99)
[2021-03-13] MEDS: SODIUM CHLORIDE 0.9% 1,000 ML IV SCH (01:25)
[2021-03-13 04:30] LABS: Glucose,Whole Blood 89 mg/dL (75-99)
[2021-03-13] MEDS ORDERED: SODIUM CHLORIDE 0.9% 1,000 ML IV ONE ×4 (04:36→11:47)
[2021-03-13 04:48] LABS: ABG Base Excess -24.1 mmol/L; ABG Oxygen Saturation 99.1 % (94-97); ABG PCO2 20 mmHg (35-45); ABG PO2 236 mmHg (83-108); ABG TCO2 7 mmol/L (19-24); Allen Test Performed? Yes
[2021-03-13] MEDS ORDERED: SODIUM BICARB 8.4% 50 ML SYR (1 MEQ/ML) IV STA ×2 (04:55→09:23)
[2021-03-13 05:10] LABS: ABG PH 7.08 (7.35-7.45)
--- NOTE | 2021-03-13 05:10 | P.EN ---
A team called on this patient for worsening mental status and hypotension patient was recently discharged from hospital after experiencing embolic stroke , he returns back to hospital yesterday for nausea, palpitations, and dizziness. currently patient becoming less responsive, hypoxic and hypotensive. upon evaluation , patient is tracking with his eyes, has edouard cath in with dark urine, patient is non verbal , peripheral pulse hard to detect and thready , BP is not registering lungs clear to auscultation HR in the 70 irregular no leg edema doing rapid mouth breathing cold extremities no reported fevers labs reviewed suggestive of KYLEE and dehydration ABG , through fem stick done by chief writer . showing severe metabolic acidosis , rapid breathing seems to be in compensation to severe metabolic acidosis . assessment severe metabolic acidosis with KYLEE and dehydration hypotension plan 2 L bolus of normal saline over 2 hours give 2 amps of bicarb , then start on bicarb drip of 150 meq bicarb in 1` L D5%, at 75 cc/hr blood sugar 89 switch to non rebreather check LA, BMP BP reassessed manually after about 300-500 cc of bolus , it seems to have systolic blood pressure of 95 mmhg continue close monitoring on step down unit , if no improvement with above measures, then will transfer to icu for IV pressors 55 minutes were spent in critical care time in the care of this patient
[2021-03-13 05:11] LABS: ABG HCO3 6 mmol/L (21-25)
[2021-03-13] MEDS ORDERED: DEXTROSE 5% IN WATER 1,000 ML with SODIUM BICARB (1 MEQ/ML) 150 ML IV SCH (05:15)
[2021-03-13 05:54] LABS: Hypochromasia Slight; MCH 27.8 pg (25.0-35.0); MCHC 31.1 g/dL (31.0-37.0); MCV 89.3 fL (80.0-100.0); Mean Platelet Volume 10.2; Platelet Count 326 k/uL (150-450); RDW 14.8 % (11.5-15.5); WBC 6.6 k/uL (3.8-10.6)
[2021-03-13 05:56] LABS: HCT 62.8 % (39.0-53.0); HGB 19.6 gm/dL (13.0-17.5); RBC 7.03 m/uL (4.30-5.90)
[2021-03-13 06:14] LABS: Calcium 10.7 mg/dL (8.4-10.2)
[2021-03-13 06:16] LABS: Band Neutrophils % 54 %; Lymphocytes # (M) 0.79 k/uL (1.0-4.8); Monocytes # (M) 1.06 k/uL (0-1.0); Neutrophils % (M) 18 %; Nucleated Red Blood Cells 0 /100 WBC (0-0); Total Cells Counted 200
[2021-03-13 06:17] LABS: Potassium 6.4 mmol/L (3.5-5.1)
[2021-03-13 06:18] LABS: Anisocytosis (M) Present; Poikilocytosis (M) Present; Toxic Granulation Present
[2021-03-13] MEDS ORDERED: DEXTROSE 50% SYRINGE 50 ML IVP ONE ×2 (06:48→11:50)
[2021-03-13] MEDS: PANTOPRAZOLE 40 MG TABLET PO SCH (06:55)
[2021-03-13 06:58] LABS: Glucose,Whole Blood 62 mg/dL (75-99)
[2021-03-13 07:09] LABS: Glucose,Whole Blood 80 mg/dL (75-99)
[2021-03-13 08:21] LABS: Glucose,Whole Blood 78 mg/dL (75-99)
[2021-03-13] MEDS ORDERED: FUROSEMIDE 40 MG TAB PO SCH (09:00)
[2021-03-13] MEDS ORDERED: lisinopriL 5 MG TAB PO SCH (09:00)
[2021-03-13] MEDS ORDERED: ASPIRIN 81 MG PO SCH (09:00)
--- NOTE | 2021-03-13 09:10 | P.CNPUL ---
History of Present Illness Consult date: 03/13/21 Chief complaint: altered mentation History of present illness: 65-year-old male patient who got transferred to the intensive care because of altered mentation, acute kidney injury, metabolic acidosis, and worsening shortness of breath. The patient is a complicated case. 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 He also has a stroke and the left insular area. the patient was in the hospital can February 2021 and at that time the patient received TPA regarding his stroke. Nevertheless, he remained debilitated and aphasic following the CVA. During his last admission, he was also found to be in A. fib and the patient was controlled with a combination of metoprolol and he was discharged on Eliquis. He is known to have cardiomyopathy with an ejection fraction of 20-25% with sys tolic heart failure. He has hypertension and he has also chronic stage III kidney disease related to hypertensive nephrosclerosis and he seems to be noncompliant to medical treatment. He has hyperlipidemia also. The patient came into the emergency department yesterday because of A. fib RVR. He was also hypoxic and he was placed on 100% nonrebreather facemask. He was placed on a Cardizem drip at 10 mg an hour. Earlier this morning, the patient was found to be having worsening in mental status. He was placed on 100% nonrebreather facemask. He was transferred to the ICU. Note that the patient converted back into sinus rhythm and his current rate is around 70. He is still tachypneic. He is cold and clammy. He doesn't follow any commands. Extremely obtunded, remains aphasic. Urine output is minimal at this point in time. Note that the patient apparently has chronic urinary retention and the patient undergoes self- catheterization at home. Currently has a Ledesma catheter in place. Meanwhile, the patient's blood work showed a white cell count of 6, hemoglobin was at 19.6 and the potassium was at 6.4 with a bicarb of 12 and the BUN of 87 with a creatinine of 3.55. ProBNP level was 38,000, calcium is at 10.7, lactic acid level is at 4.0. The blood gases showed a pH of 7.08 with a pCO2 of 20 and pO2 of 236 and this was on FiO2 of 100%. Chest x-ray is showing no acute process. Ultrasound the kidneys showed cortical thickening and increased echogenicity in renal cortex suggestive of medical renal disease, chronic. CAT scan of the brain was not done. Last CAT scan was done on 03/02/2021 and it showed chronic small vessel ischemic changes and age-related atrophy. Review of Systems ROS unobtainable: due to mental status Past Medical History Past Medical History: Atrial Fibrillation, Cancer, Heart Failure, CVA/TIA, Hypertension, Renal Disease Additional Past Medical History / Comment(s): HX. BILAT HYDRONEPHROSIS, hx. perforated diverticulum, hx. of A-fib in past-says doesn't have anymore-took xarelto until few months ago, hx. prostate cancer-tx. w/cryotherapy History of Any Multi-Drug Resistant Organisms: None Reported Past Surgical History: Back Surgery, Bowel Resection Additional Past Surgical History / Comment(s): SX TO RELIEVE BLEEDING IN THE HEAD from head injury @[facility],. COLOSTOMY 2014 then reversal Past Anesthesia/Blood Transfusion Reactions: No Reported Reaction Past Psychological History: No Psychological Hx Reported Smoking Status: Never smoker Past Alcohol Use History: Occasional Past Drug Use History: None Reported - Past Family History Father Family Medical History: AFIB, Coronary Artery Disease (CAD), Prostate Disorder Medications and Allergies Home Medications Medication Instructions Recorded Confirmed Type Apixaban [Eliquis] 5 mg PO BID #60 tab 03/03/21 03/12/21 Rx Aspirin 81 mg PO DAILY #30 chew 03/03/21 03/12/21 Rx Atorvastatin [Lipitor] 10 mg PO HS #30 tab 03/03/21 03/12/21 Rx Furosemide [Lasix] 40 mg PO DAILY #30 tablet 03/03/21 03/12/21 Rx Lisinopril [Prinivil] 5 mg PO DAILY #30 tab 03/03/21 03/12/21 Rx Metoprolol Tartrate [Lopressor] 50 mg PO BID #60 tab 03/03/21 03/12/21 Rx Allergies Allergy/AdvReac Type Severity Reaction Status Date / Time divalproex sodium Allergy Rash/Hives Verified 03/12/21 10:22 [From Depakote] Physical Exam Vitals: Vital Signs Temp Pulse Pulse Resp BP BP Pulse Ox 03/13/21 04:00 97.2 F L 77 30 H 95/64 95 05/31/21 00:00 97.0 F L 74 24 90/62 95 03/12/21 20:00 97.6 F 82 20 119/84 99 03/12/21 16:25 97.4 F L 105 H 18 119/85 03/12/21 14:39 65 20 157/94 96 03/12/21 13:00 106 H 18 157/94 98 03/12/21 11:39 74 20 152/116 97 03/12/21 11:02 110 H 18 149/109 98 03/12/21 10:14 98 18 165/108 98 03/12/21 09:46 97.4 F L 160 H 18 148/97 98 Intake and Output 03/12/21 03/13/21 03/13/21 22:59 06:59 14:59 Intake Total 97 10 Output Total 350 350 Balance -253 -340 Intake: IV 10 10 Invasive Line 2 10 Invasive Line 3 10 Intake, IV Titration 87 Amount Diltiazem 125 mg In 87 Sodium Chloride 0.9% 100 ml @ 5 MG/HR 5 mls/hr IV .Q24H [facility] Rx#:[id number] Output: Urine 350 350 Uretheral (Ledesma) 350 Other: Voiding Method Indwelling Catheter Indwelling Catheter # Bowel Movements 1 Weight 77.111 kg 76.5 kg GENERAL: The patient is alert and oriented x0 aphasic, unable to communicate, currently on 100% nonrebreather facemask, skin is mottled and lower extremities bilaterally, looks quite dehydrated and somewhat thickened neck. Head exam was generally normal. There was no scleral icterus or corneal arcus. Mucous membranes were moist. HEENT: Pupils are round and equally reacting to light. EOMI. No scleral icterus. No conjunctival pallor. Normocephalic, atraumatic. No pharyngeal erythema. No thyromegaly. CARDIOVASCULAR: S1 and S2 present. No murmurs, rubs, or gallops. PULMONARY: Chest is clear to auscultation, no wheezing or crackles. ABDOMEN: Soft, nontender, nondistended, normoactive bowel sounds. No palpable organomegaly. MUSCULOSKELETAL: No joint swelling or deformity. EXTREMITIES: No cyanosis, clubbing, or pedal edema. NEUROLOGICAL: Patient has a Broca's aphasia , aphasic, altered, unable to communicate, pupils are equal and reactive to light. SKIN: No rashes. He has mottled skin lower extremities bilaterally. Results - Laboratory Findings CBC and BMP: 03/13/21 05:27 03/13/21 05:27 ABG ABG pH 7.08 (7.35-7.45) L* 03/13/21 04:40 ABG pCO2 20 mmHg (35-45) L 03/13/21 04:40 ABG pO2 236 mmHg (83-108) H 03/13/21 04:40 ABG O2 Saturation 99.1 % (94-97) H 03/13/21 04:40 PT/INR, D-dimer PT 10.9 sec (9.0-12.0) 03/12/21 11:10 INR 1.0 (<1.2) 03/12/21 11:10 Abnormal lab findings: Abnormal Labs 03/12/21 03/12/21 03/12/21 09:47 10:00 10:00 WBC 13.8 H RBC 6.88 H Hgb 19.5 H* D Hct 60.7 H* Neutrophils # 12.8 H Lymphocytes # 0.4 L Lymphocytes # (Manual) Monocytes # (Manual) APTT ABG pH ABG pCO2 ABG pO2 ABG HCO3 ABG Total CO2 ABG O2 Saturation Potassium 5.7 H Chloride 110 H Carbon Dioxide 14 L BUN 75 H Creatinine 2.34 H Glucose 181 H POC Glucose (mg/dL) 169 H Plasma Lactic Acid Vicente Calcium 12.0 H Magnesium 2.4 H Troponin I Procalcitonin Urine Protein Urine Blood Ur Leukocyte Esterase Urine WBC Urine WBC Clumps Urine Bacteria Urine Mucus 03/12/21 03/12/21 03/12/21 11:10 15:51 16:42 WBC RBC Hgb Hct Neutrophils # Lymphocytes # Lymphocytes # (Manual) Monocytes # (Manual) APTT 18.8 L ABG pH ABG pCO2 ABG pO2 ABG HCO3 ABG Total CO2 ABG O2 Saturation Potassium Chloride Carbon Dioxide BUN Creatinine Glucose POC Glucose (mg/dL) 145 H Plasma Lactic Acid Vicente Calcium Magnesium Troponin I Procalcitonin Urine Protein 2+ H Urine Blood Large H Ur Leukocyte Esterase Large H Urine WBC >182 H Urine WBC Clumps Few H Urine Bacteria Few H Urine Mucus Rare H 03/12/21 03/12/21 03/12/21 17:40 17:40 20:15 WBC RBC Hgb Hct Neutrophils # Lymphocytes # Lymphocytes # (Manual) Monocytes # (Manual) APTT ABG pH ABG pCO2 ABG pO2 ABG HCO3 ABG Total CO2 ABG O2 Saturation Potassium Chloride Carbon Dioxide BUN Creatinine Glucose POC Glucose (mg/dL) 194 H Plasma Lactic Acid Vicente Calcium Magnesium Troponin I 0.053 H* Procalcitonin 1.42 H Urine Protein Urine Blood Ur Leukocyte Esterase Urine WBC Urine WBC Clumps Urine Bacteria Urine Mucus 03/13/21 03/13/21 03/13/21 01:05 04:40 05:27 WBC RBC 7.03 H Hgb 19.6 H* Hct 62.8 H* Neutrophils # Lymphocytes # Lymphocytes # (Manual) 0.79 L Monocytes # (Manual) 1.06 H APTT ABG pH 7.08 L* ABG pCO2 20 L ABG pO2 236 H ABG HCO3 6 L* ABG Total CO2 7 L ABG O2 Saturation 99.1 H Potassium Chloride Carbon Dioxide BUN Creatinine Glucose POC Glucose (mg/dL) 114 H Plasma Lactic Acid Vicente Calcium Magnesium Troponin I Procalcitonin Urine Protein Urine Blood Ur Leukocyte Esterase Urine WBC Urine WBC Clumps Urine Bacteria Urine Mucus 03/13/21 03/13/21 03/13/21 05:27 05:27 06:45 WBC RBC Hgb Hct Neutrophils # Lymphocytes # Lymphocytes # (Manual) Monocytes # (Manual) APTT ABG pH ABG pCO2 ABG pO2 ABG HCO3 ABG Total CO2 ABG O2 Saturation Potassium 6.4 H* Chloride 115 H Carbon Dioxide 12 L BUN 87 H Creatinine 3.55 H Glucose 72 L POC Glucose (mg/dL) 62 L Plasma Lactic Acid Vicente 4.0 H* Calcium 10.7 H Magnesium Troponin I Procalcitonin Urine Protein Urine Blood Ur Leukocyte Esterase Urine WBC Urine WBC Clumps Urine Bacteria Urine Mucus - Diagnostic Findings Chest x-ray: image reviewed Assessment and Plan Plan: 11 altered mental status in a patient with known history of previous CVA and expressive aphasia. Obviously patient is coming in with dehydration, significant metabolic abnormalities and severe metabolic acidosis in addition to acute on top of chronic kidney disease, dehydration, hyperkalemia and A. fib with RVR. Recurrent CVA is hard to exclude. CAT scan of the brain has not been done. Patient is quite obtunded at this point in time. Father responding to any painful stimulation. He opens his eyes spontaneously. Moves extremities. Not following any commands for no seizure activity has been noted. 2 previous history of CVA, likely embolic in nature with expressive aphasia involving the left parietal lobe 3 chronic atrial fibrillation, with rapid ventricular response at time of admission current rhythm is sinus 4 cardiomyopathy with an ejection fraction of 20-25% 5 history of prostate cancer 6 history of chronic kidney disease stage III and the patient is an acute on top of chronic kidney disease 7 mild lactic acidosis 8 severe metabolic acidosis, along with an acute hyperkalemia 9 severe dehydration 10 history of hydronephrosis related to chronic kidney disease 11 history of self-catheterization regarding chronic urinary retention 12 hypertension 13 hyperlipidemia 14 acute hyperkalemia Plan Extremely poor prognosis. Very much debilitated. Significant metabolic barbara angements noted. Will put the patient on D5 and a total of 150 mEq of sodium bicarbonate of 125 mL an hour. We'll give the patient another bolus of 500 mL. The patient was given sodium bicarb pushes and will monitor his potassium level. We'll monitor his acidosis. We'll monitor his blood gas. Note that the patient was also given D50 insulin. No cardiac arrhythmias regarding his hyperkalemia. We'll establish a triple lumen catheter. We'll monitor his CVP. The patient will be placed back on IV heparin. The patient will be taken off the Cardizem drip for now. We'll keep the Ledesma catheter in place. Cover the patient with IV Zosyn as a broad-spectrum antibiotic coverage. Chest x-rays clear. Monitor lactic acid level. We'll continue to follow.
[2021-03-13] MEDS ORDERED: INSULIN REGULAR 100 UNIT/ML VIAL (IV) IV ONE (09:21)
[2021-03-13] MEDS ORDERED: DEXTROSE 50% SYRINGE 50 ML IVP STA (09:22)
[2021-03-13] MEDS ORDERED: PIPERACILLIN-TAZOBACTAM 3.375 GM in SODIUM CHLORIDE 0.9% 100 ML IVPB SCH (09:30)
[2021-03-13] MEDS ORDERED: HEPARIN SODIUM 1,000 UN/ML (10ML VL) IV PRN (09:34)
[2021-03-13] MEDS ORDERED: HEPARIN SODIUM 1,000 UN/ML (10ML VL) IV ONE (09:34)
[2021-03-13] MEDS ORDERED: HEPARIN SOD,PORK IN 0.45% NACL 25,000 UNIT in 0.45% NACL 1 250ML.BAG IV SCH (09:45)
[2021-03-13] MEDS: METOPROLOL TARTRATE 50 MG TAB PO SCH (09:48)
--- NOTE | 2021-03-13 10:10 | XR ---
EXAMINATION TYPE: XR chest 1V portable DATE OF EXAM: 03/13/2021 COMPARISON: Chest x-ray 03/12/2021 HISTORY: Central line placement TECHNIQUE: Single frontal view of the chest is obtained. FINDINGS: There is been interval placement of left subclavian central venous catheter, catheter is c oursing into the neck. No evident pneumothorax. Lucency is questioned underneath the hemidiaphragms. Difficult to exclude pneumoperitoneum. IMPRESSION: Catheter as described. Correlate for possible pneumoperitoneum. Results relayed telephon ically to the referring clinician at the time of interpretation.
[2021-03-13 10:43] LABS: INR 1.6 (<1.2); Partial Thromboplastin Time 24.2 sec (22.0-30.0); Prothrombin Time 15.8 sec (9.0-12.0)
[2021-03-13 11:05] VITALS: TEMP 96
[2021-03-13 11:28] LABS: Hypochromasia Slight; MCH 27.4 pg (25.0-35.0); MCHC 30.8 g/dL (31.0-37.0); Mean Platelet Volume 10.1; Platelet Count 284 k/uL (150-450); RBC 6.92 m/uL (4.30-5.90); RDW 15.1 % (11.5-15.5); WBC 6.6 k/uL (3.8-10.6)
[2021-03-13 11:31] LABS: HCT 61.6 % (39.0-53.0)
--- NOTE | 2021-03-13 11:48 | P.PCN ---
Date of Procedure: 03/13/21 Operative Findings: Date of Procedure: 03/13/21 Preoperative Diagnosis: altered mental status Postoperative Diagnosis: altered mental status Procedure(s) Performed: central line insertion Anesthesia: local Surgeon: Lexi Robbins Estimated Blood Loss (ml): 0 Condition: critical Disposition: ICU Operative Findings: Indication: Hemodynamic monitoring/Intravenous access. A time-out was completed verifying correct patient, procedure, site, positioni ng, and implant(s) or special equipment if applicable. The patient was placed in a dependent position appropriate for central line placement based on the vein to be cannulated. The patient s left shoulder was prepped and draped in sterile fashion. 1% Lidocaine was used to anesthetize the surrounding skin area. A triple lumen 9F Cordis catheter was introduced into the left subclavian vein using Seldinger technique. The catheter was threaded smoothly over the guide wire and appropriate blood return was obtained. Each lumen of the catheter was evacuated of air and flushed with sterile saline. The catheter was then sutured in place to the skin and a sterile dressing applied. Perfusion to the extremity distal to the point of catheter insertion was checked and found to be adequate. The patient tolerated the procedure well and there were no complications.
[2021-03-13] MEDS ORDERED: EPINEPHrine 10 ML SYRINGE (0.1 MG/ML) ONE (11:50)
[2021-03-13] MEDS ORDERED: SODIUM BICARB 8.4% 50 ML SYR (1 MEQ/ML) ONE ×2 (11:50→12:01)
--- NOTE | 2021-03-13 11:51 | XR ---
EXAMINATION TYPE: XR chest 1V portable DATE OF EXAM: 03/13/2021 COMPARISON: Chest x-ray same dated earlier time HISTORY: Left subclavian central venous catheter placement TECHNIQUE: Single frontal view of the chest is obtained. FINDINGS: There is been interval repositioning of the central venous catheter, catheter tip is overl john the superior vena cava to the cavoatrial junction level. There is no pneumothorax or pleural eff usion. IMPRESSION: No evident complication status post central venous catheter placement.
--- NOTE | 2021-03-13 12:39 | CONS ---
CONSULTATION REASON FOR CONSULT: Renal failure. HISTORY OF PRESENT ILLNESS: Patient is a 65-year-old male who was initially admitted to the hospital with shortness of breath, increased weakness. His mentation worsened and he was more short of breath and therefore transferred to the ICU. He is currently hypotensive with no significant urine output. Patient has a history of recent CVA status post tPA last admission and recently discharged. He has been aphasic since his stroke. The patient has cardiomyopathy with ejection fraction 20-25%. He came in with atrial fibrillation with RVR and has now converted back to sinus rhythm. He was on Cardizem drip earlier. Patient's serum potassium was 6.4 mEq/L this morning. His creatinine was 3.5. Previous creatinine 2.3 yesterday and previous to that he has been running around 1.4- 1.6 mg/dL. Lactic acid was elevated. His CO2 is only 12. PAST MEDICAL HISTORY: Recent CVA, status post TpA, history of atrial fibrillation, CHF, hypertension, CKD, history of obstructive uropathy. PAST SURGICAL HISTORY: Surgery for perforated diverticulum. Prostate cancer treated with cryotherapy, bowel resection, colostomy and then reversal. SOCIAL HISTORY: Negative for smoking, drug abuse or alcohol abuse. MEDICATIONS: Medications prior to admission included Eliquis, aspirin, Lipitor, Lasix, Prinivil, Lopressor. ALLERGIES: Include Depakote, which causes rash and hives. PHYSICAL EXAMINATION: Patient is currently comfortable. He is laying flat. No significant respiratory distress. He is barely responsive. Maintained on 100% non-rebreather. On examination blood pressure was 92/70, heart rate 72 per minute. He is afebrile, O2 sats 89% on 8 L nasal cannula. Examination of the heart S1, S2. Examination of the lungs, bilateral breath sounds are heard. Abdomen is soft, nontender. Examination of lower extremities shows no evidence of edema. LAW CLERK exam shows patient is moving all 4 extremities. He does not communicate much. LAB: Show hemoglobin 19.6, sodium 139, potassium 6.4, chloride of 115, CO2 is 12, BUN 87, creatinine 3.5. Lactic acid 4.0, calcium 10.7. ProBNP 38,000. ASSESSMENT: 1. Acute kidney injury acute tubular necrosis currently oliguric secondary to hypotension, hypoperfusion. 2. Hyperkalemia associated with acute kidney injury, severe metabolic acidosis. No evidence of obstructive uropathy on current ultrasound. 3. Metabolic acidosis secondary to renal failure non gap. 4. Lactic acidosis. 5. Mild hypercalcemia associated with acute kidney injury. Expect improvement with hydration. I do not see any calcium supplements on his home med list. 6. History of hypertension, maintained on TERRY inhibitors prior to admission. 7. Chronic atrial fibrillation with the patient on Eliquis prior to his admission. 8. History of recent cerebrovascular accident status post tPA with aphasia since his stroke. Plans for repeat CT scan to be done later on today. 9. Pyuria most likely underlying urinary tract infection. Urine culture is currently pending. 10.Cardiomyopathy with EF 25-30 percent previously. 11. PLAN: Agree with IV bicarb. Repeat another fluid bolus. Repeat labs this afternoon. Continue to avoid nephrotoxic agents. Continue empiric antibiotics Thank you for this consultation. We will continue to follow the patient with you during his hospitalization. MMODL / IJN: [id number] /
[2021-03-13] MEDS ORDERED: DILTIAZEM 5 MG/ML 5 ML VIAL IVP STA (12:43)
--- NOTE | 2021-03-13 12:46 | XR ---
EXAMINATION TYPE: XR chest 1V portable DATE OF EXAM: 03/13/2021 COMPARISON: Chest x-ray same dated earlier time HISTORY: Intubated TECHNIQUE: Single frontal view of the chest is obtained. FINDINGS: There is been interval placement of an endotracheal tube and orogastric tube which are ove rlying appropriate positions. No significant interval change. IMPRESSION: No evident complication status post intubation
[2021-03-13 12:59] LABS: ABG Base Excess -9.5 mmol/L; ABG HCO3 19 mmol/L (21-25); ABG Oxygen Saturation 99.4 % (94-97); ABG PCO2 51 mmHg (35-45); ABG PO2 254 mmHg (83-108); ABG TCO2 20 mmol/L (19-24); Allen Test Performed? Yes
[2021-03-13 13:03] LABS: ABG PH 7.18 (7.35-7.45)
[2021-03-13] MEDS ORDERED: NOREPINEPHRIN 4 MG-0.9% NS PMX 4 MG/250 ML ML IV ONE (13:19)
[2021-03-13 13:38] LABS: Hypochromasia Slight; MCHC 32.5 g/dL (31.0-37.0); MCV 89.3 fL (80.0-100.0); Mean Platelet Volume 10.5; Platelet Count 237 k/uL (150-450); RBC 5.27 m/uL (4.30-5.90); RDW 14.9 % (11.5-15.5); WBC 5.5 k/uL (3.8-10.6)
[2021-03-13 13:43] LABS: Albumin 1.2 g/dL (3.5-5.0); Phosphorus 5.2 mg/dL (2.5-4.5); Potassium 3.1 mmol/L (3.5-5.1); Total Bilirubin 0.4 mg/dL (0.2-1.3); Total Protein 2.6 g/dL (6.3-8.2)
[2021-03-13] MEDS ORDERED: NOREPINEPHRINE 32 MG in SODIUM CHLORIDE 0.9% 218 ML IV SCH (13:45)
[2021-03-13 13:47] LABS: HGB 15.3 gm/dL (13.0-17.5)
--- NOTE | 2021-03-13 13:55 | P.EN ---
CODE BLUE NOTE: Arrived to room patient had received ROSC with 2 mins of CPR. Noted to be bradycardiac and hypotesnive given 1 amp sodium bicarb and 0.5 mg of epi with increased blood pressure and heart rate increased to 150. 2L bolus ordered. Labs fomr the morning reviewed and K+ 6.4 with no urine output since 8 am. He was given 1 additional AMP of bicarb and bicarb gtt was increased to 300 cc/hr. 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 OG tube was inserted and had return of dark drown liquid. Heparin gtt was held. Stat Labs with CBC, CMP, MG, phos, trop CXR - tube in good position, central line in good position, OG in good position Tried phenylephrine IVP with [employer] E[employer] DES[employer] and no improvement in HR or BP. Patient continued to have A fib with RVR unstable with BP 50s/40 cardioverted with 200J which resulted in sinus rhythm which lasted about 20 seconds and he went back into A fib wtih RVR Dr Daley updated by nursing over the phone Dr. Arrington at bedside and updated. Given Metoprolol 5 mg IVP with HR decreased into to the 120s BP remained 70/50. DX: Cardiac arrest, Hyperkalemia, Acute renal failure, altered mentation, See code record for further details. Will attempt to avoid sedation. General: ill appearing, maximal distress, appears at stated age Derm: Moteling bilateral lower extremities, cool, dry Eyes: PERRL, no lid lesion, anicteric sclera Mouth: no lip lesion, mucus membranes moist Cardiovascular: S1S2 irreg, no murmur Lungs: Course bs bilateral, On vent Abdominal: soft, nontender to palpation, no guarding, no appreciable organomegaly Ext: no gross muscle atrophy, no edema, no contractures Neuro: pupil equal round and sluggishly reactive, not breathing over-vent no withdraw to pain in any extremity Psych: no sedation and not responsive. A total of 75 mins of critical care time was spent in this compllex patinent, excluding time spend with cardioversion.
[2021-03-13] MEDS ORDERED: PANTOPRAZOLE 40 MG/10 ML VIAL IVP SCH (14:00)
--- NOTE | 2021-03-13 14:04 | P.PN ---
Subjective Progress Note Date: 03/13/21 Progress note date of service 03/[address] Medellin. As patient initially admitted to telemetry floor and subsequently with the hypotension and lethargy and underlying metabolic acidosis, lactic acid elevation and also for ejection fraction the 25% and hypoxemia, consultation w [facility] critical care Dr. camarena and transferred to the ICU for for further critical management. Patient in the ICU seen by Dr. Bowman and central line in the left subclavian was placed, also he was placed with endotracheal tube and ventilator. Patient also had several episodes of CPR and with the cardiac arrest with the code team resuscitated as well as he was intubated already and with the hyperka lemia and metabolic acidosis and acute kidney injury on the top of chronic kidney disease. Patient had ultrasound of the kidney showed that he had a chronic kidney disease as well, patient has severe dehydration. His lisinopril was discontinued on admission. And Lasix was discontinued on admission. Patient received IV fluid and IV bolus and almost 2 L or more of IV fluid resuscitate his hypotension. Patient is currently seen in the ICU status post a second code, he is sedated with no response, chest x-ray was lung without pneumothorax or effusion and resuscitated with the mechanical ventilator. With Dr. Munoz pulmonary and critical care. On the exam: Breath sounds and ventilation mechanical. Heart: Regular heartbeat with atrial fibrillation which momentary recovered to sinus and return back to atrial fib with the underlying ejection fraction 25% with flappy heart. I did consult cardiology yesterday as well as nephrology yesterday because of the acute kidney injury and the atrial fibrillation with RVR. Cardizem drip was discontinued with the hypotension. He has bluish discol oration of the lower extremities to purplish discoloration with the tissue hypoxia and elevated lactic acid as well as the hyperkalemia. His lactic acid was 4.2 and 3.8 he continued on infusion with IV, also the urinary tract infection with the underlying sepsis, currently on Zosyn broad- spectrum antibiotic until the culture available. Abdomen is positive bowel sounds with the scar with previous surgery in the past and perforation of the colon due to diverticular rupture. Extremities fourth pulses bilateral and purplish bluish discoloration patches on the lower extremities cold and clammy. Patient also has mild elevation of troponin has well. Patient seen in ICU to 57 bed 1 room number. WBC 6.6 and his hemoglobin improved to 19 and WBC improved to 6.92 which was abnormal with severe dehydration and hemoconcentration oil spot washer hour at 5:15 a.m also laboratory was done and at that time he had WBC 6.6 and hemoglobin 19.6 and hematocrit 62.8.. Potassium of 6.4 and carbon dioxide was 12 with a BUN 87 and creatinine 3.55 and blood sugar was 72 with the GFR 17 and lactic acid was 4 and calcium 10.7 was initially 12 with the pro-BMP 38,000 with the underlying congestive heart failure chronic with with ejection fraction 25%. Assessment: #1 acute kidney injury on the top of chronic kidney disease #2 HTN was no urine output and oriented. #3 metabolic acidosis with a pH 7.04 of the ABGs, #4 acute sepsis highly considered with the urinary tract infection. On Zosyn antibiotic broad- spectrum. #5 severe dehydration, hemoconcentration with the elevated hematocrit and hemoglobin. #6 leukocytosis improved subsequently from the admission #7 atrial fibrillation with the rapid ventricular response improved #8 hypotension with the cardiac arrest status post CPR 2 #9 tissue hypoxia with the progression discoloration of the skin of the lower extremities peripheral cyanosis. #10 hypoxic respiratory failure with metabolic acidosis, resuscitated intubated on mechanical ventilation. Discussion and plan: #1 discussed with his sister lives in [place] , name is gerber Petersen her phone #[phone] and conference call with Janice Dolan her #[phone] Conference call lasted 30 minutes for discussion and explanation of patient disease and illness and his previous hospital admission. #2 his friend Edmundo brought him to the hospital phone number [phone]. #3 discussed the prognosis very serious and critical for the patient with the multiple medical problem, acute kidney injury with kidney failure, intubation and ventilator, severe hypotension, impaired systolic cardiac function with the ejection fraction 25%. #4 will continue monitor and treatment by critical care and the pulmonary, cardiology and nephrology,. #5 continue monitoring the laboratories and adjustment of medication accordingly. Total time spent in the ICU 1 hour 50% discussion with the patient family on the phone. Objective - Vital Signs Vital signs: Vital Signs Temp 96.0 F L 03/13/21 09:00 Pulse 75 03/13/21 11:00 Resp 29 H 03/13/21 11:00 BP 139/123 03/13/21 11:00 Pulse Ox 99 03/13/21 11:00 Intake & Output 03/12/21 03/13/21 03/13/21 18:59 06:59 18:59 Intake Total 12.5 107 1475 Output Total 350 350 0 Balance -337.5 -243 1475 Weight 77.111 kg 76.5 kg Intake: IV 20 1475 Dextrose 5% in Water 1, 375 000 ml @ 125 mls/hr IV . Q9H12M LYNN with Sodium Bicarb (1 Meq/ml) 150 ml Rx#:[id number] Invasive Line 2 10 Invasive Line 3 10 Piperacillin-Tazobactam 3 100 .375 gm In Sodium Chloride 0.9% 100 ml @ 25 mls/hr IVPB Q12HR LYNN Rx #:[id number] Sodium Chloride 0.9% 1, 1000 000 ml @ 999 mls/hr IV . Q1H1M ONE Rx#:[id number] Intake, IV Titration 12.5 87 Amount Diltiazem 125 mg In 12.5 87 Sodium Chloride 0.9% 100 ml @ 5 MG/HR 5 mls/hr IV .Q24H LYNN Rx#:[id number] Output: Urine 350 350 0 Uretheral (Ledesma) 350 Other: Voiding Method Indwelling Catheter Indwelling Catheter # Bowel Movements 1 - Labs CBC & Chem 7: 03/13/21 11:14 03/13/21 05:27 Labs: Abnormal Lab Results - Last 24 Hours (Table) 03/12/21 03/12/21 03/12/21 Range/Units 15:51 16:42 17:40 RBC (4.30-5.90) m/uL Hgb (13.0-17.5) gm/dL Hct (39.0-53.0) % MCHC (31.0-37.0) g/dL Lymphocytes # (Manual) (1.0-4.8) k/uL Monocytes # (Manual) (0-1.0) k/uL PT (9.0-12.0) sec INR (<1.2) ABG pH (7.35-7.45) ABG pCO2 (35-45) mmHg ABG pO2 (83-108) mmHg ABG HCO3 (21-25) mmol/L ABG Total CO2 (19-24) mmol/L ABG O2 Saturation (94-97) % Potassium (3.5-5.1) mmol/L Chloride (98-107) mmol/L Carbon Dioxide (22-30) mmol/L BUN (9-20) mg/dL Creatinine (0.66-1.25) mg/dL Glucose (74-99) mg/dL POC Glucose (mg/dL) 145 H (75-99) mg/dL Plasma Lactic Acid Vicente (0.7-2.0) mmol/L Calcium (8.4-10.2) mg/dL Troponin I 0.053 H* (0.000-0.034) ng/mL Procalcitonin (0.02-0.09) ng/mL Urine Protein 2+ H (Negative) Urine Blood Large H (Negative) Ur Leukocyte Esterase Large H (Negative) Urine WBC >182 H (0-5) /hpf Urine WBC Clumps Few H (None) /hpf Urine Bacteria Few H (None) /hpf Urine Mucus Rare H (None) /hpf 03/12/21 03/12/21 03/13/21 Range/Units 17:40 20:15 01:05 RBC (4.30-5.90) m/uL Hgb (13.0-17.5) gm/dL Hct (39.0-53.0) % MCHC (31.0-37.0) g/dL Lymphocytes # (Manual) (1.0-4.8) k/uL Monocytes # (Manual) (0-1.0) k/uL PT (9.0-12.0) sec INR (<1.2) ABG pH (7.35-7.45) ABG pCO2 (35-45) mmHg ABG pO2 (83-108) mmHg ABG HCO3 (21-25) mmol/L ABG Total CO2 (19-24) mmol/L ABG O2 Saturation (94-97) % Potassium (3.5-5.1) mmol/L Chloride (98-107) mmol/L Carbon Dioxide (22-30) mmol/L BUN (9-20) mg/dL Creatinine (0.66-1.25) mg/dL Glucose (74-99) mg/dL POC Glucose (mg/dL) 194 H 114 H (75-99) mg/dL Plasma Lactic Acid Vicente (0.7-2.0) mmol/L Calcium (8.4-10.2) mg/dL Troponin I (0.000-0.034) ng/mL Procalcitonin 1.42 H (0.02-0.09) ng/mL Urine Protein (Negative) Urine Blood (Negative) Ur Leukocyte Esterase (Negative) Urine WBC (0-5) /hpf Urine WBC Clumps (None) /hpf Urine Bacteria (None) /hpf Urine Mucus (None) /hpf 03/13/21 03/13/21 03/13/21 Range/Units 04:40 05:27 05:27 RBC 7.03 H (4.30-5.90) m/uL Hgb 19.6 H* (13.0-17.5) gm/dL Hct 62.8 H* (39.0-53.0) % MCHC (31.0-37.0) g/dL Lymphocytes # (Manual) 0.79 L (1.0-4.8) k/uL Monocytes # (Manual) 1.06 H (0-1.0) k/uL PT (9.0-12.0) sec INR (<1.2) ABG pH 7.08 L* (7.35-7.45) ABG pCO2 20 L (35-45) mmHg ABG pO2 236 H (83-108) mmHg ABG HCO3 6 L* (21-25) mmol/L ABG Total CO2 7 L (19-24) mmol/L ABG O2 Saturation 99.1 H (94-97) % Potassium 6.4 H* (3.5-5.1) mmol/L Chloride 115 H (98-107) mmol/L Carbon Dioxide 12 L (22-30) mmol/L BUN 87 H (9-20) mg/dL Creatinine 3.55 H (0.66-1.25) mg/dL Glucose 72 L (74-99) mg/dL POC Glucose (mg/dL) (75-99) mg/dL Plasma Lactic Acid Vicente (0.7-2.0) mmol/L Calcium 10.7 H (8.4-10.2) mg/dL Troponin I (0.000-0.034) ng/mL Procalcitonin (0.02-0.09) ng/mL Urine Protein (Negative) Urine Blood (Negative) Ur Leukocyte Esterase (Negative) Urine WBC (0-5) /hpf Urine WBC Clumps (None) /hpf Urine Bacteria (None) /hpf Urine Mucus (None) /hpf 03/13/21 03/13/21 03/13/21 Range/Units 05:27 05:27 06:45 RBC (4.30-5.90) m/uL Hgb (13.0-17.5) gm/dL Hct (39.0-53.0) % MCHC (31.0-37.0) g/dL Lymphocytes # (Manual) (1.0-4.8) k/uL Monocytes # (Manual) (0-1.0) k/uL PT 15.8 H (9.0-12.0) sec INR 1.6 H (<1.2) ABG pH (7.35-7.45) ABG pCO2 (35-45) mmHg ABG pO2 (83-108) mmHg ABG HCO3 (21-25) mmol/L ABG Total CO2 (19-24) mmol/L ABG O2 Saturation (94-97) % Potassium (3.5-5.1) mmol/L Chloride (98-107) mmol/L Carbon Dioxide (22-30) mmol/L BUN (9-20) mg/dL Creatinine (0.66-1.25) mg/dL Glucose (74-99) mg/dL POC Glucose (mg/dL) 62 L (75-99) mg/dL Plasma Lactic Acid Vicente 4.0 H* (0.7-2.0) mmol/L Calcium (8.4-10.2) mg/dL Troponin I (0.000-0.034) ng/mL Procalcitonin (0.02-0.09) ng/mL Urine Protein (Negative) Urine Blood (Negative) Ur Leukocyte Esterase (Negative) Urine WBC (0-5) /hpf Urine WBC Clumps (None) /hpf Urine Bacteria (None) /hpf Urine Mucus (None) /hpf 03/13/21 03/13/21 03/13/21 Range/Units 08:32 11:14 11:14 RBC 6.92 H (4.30-5.90) m/uL Hgb 19.0 H (13.0-17.5) gm/dL Hct 61.6 H* (39.0-53.0) % MCHC 30.8 L (31.0-37.0) g/dL Lymphocytes # (Manual) (1.0-4.8) k/uL Monocytes # (Manual) (0-1.0) k/uL PT (9.0-12.0) sec INR (<1.2) ABG pH (7.35-7.45) ABG pCO2 (35-45) mmHg ABG pO2 (83-108) mmHg ABG HCO3 (21-25) mmol/L ABG Total CO2 (19-24) mmol/L ABG O2 Saturation (94-97) % Potassium (3.5-5.1) mmol/L Chloride (98-107) mmol/L Carbon Dioxide (22-30) mmol/L BUN (9-20) mg/dL Creatinine (0.66-1.25) mg/dL Glucose (74-99) mg/dL POC Glucose (mg/dL) (75-99) mg/dL Plasma Lactic Acid Vicente 4.2 H* 3.8 H* (0.7-2.0) mmol/L Calcium (8.4-10.2) mg/dL Troponin I (0.000-0.034) ng/mL Procalcitonin (0.02-0.09) ng/mL Urine Protein (Negative) Urine Blood (Negative) Ur Leukocyte Esterase (Negative) Urine WBC (0-5) /hpf Urine WBC Clumps (None) /hpf Urine Bacteria (None) /hpf Urine Mucus (None) /hpf Microbiology - Last 24 Hours (Table) 03/12/21 15:51 Urine Culture - Preliminary Urine,Voided
[2021-03-13] MEDS ORDERED: CHLORHEXIDINE GLUCONATE 15 ML CUP MUCOUS MEM ONE (15:01)
[2021-03-13 15:05] LABS: Albumin 1.7 g/dL (3.5-5.0); Calcium 10.1 mg/dL (8.4-10.2); Magnesium 2.3 mg/dL (1.6-2.3); Phosphorus 6.3 mg/dL (2.5-4.5); Potassium 4.6 mmol/L (3.5-5.1); Total Bilirubin 0.6 mg/dL (0.2-1.3); Total Protein 3.6 g/dL (6.3-8.2)
[2021-03-13 15:43] LABS: MCHC 33.1 g/dL (31.0-37.0); MCV 87.7 fL (80.0-100.0); Mean Platelet Volume 10.2; Platelet Count 265 k/uL (150-450); RDW 14.8 % (11.5-15.5); WBC 6.4 k/uL (3.8-10.6)
[2021-03-13 15:56] LABS: HGB 19.5 gm/dL (13.0-17.5)
[2021-03-13 15:57] LABS: HCT 58.8 % (39.0-53.0)
--- NOTE | 2021-03-13 16:09 | P.CRDCN ---
History of Present Illness History of present illness: This is Dr. Ulloa dictating a consult on this patient The patient was interviewed and examined IMPRESSION / ASSESSMENT: Metabolic acidosis, worsening renal function Intubated acute respiratory failure A. fib with RVR Patient is in shock and is on pressors PLAN: 1 cm intracerebral bleed is been ruled out heparin should be started rate is platelets are normal I will start him on IV amiodarone for rate control Unable to give him IV diltiazem IV digoxin or IV Cardizem in view of his blood pressure and renal function Overall prognosis is poor HPI Patient recently discharged from the hospital after experiencing an embolic stroke returns for nausea or palpitations and dizziness Progressively became worse, less responsive hypoxic and hypotensive He is found to be acidotic He is a history of embolic CVA, atrial fibrillation, cardio myopathy, chronic kidney disease ROS: No fever chills or rigors, no cough, phlegm or expectoration, no nausea, vomiting or diarrhea, no hematuria, dysuria, no musculoskeletal complaints, no strokes or seizures, no skin lesions. EXAMINATION: Patient was transferred to the ICU this morning and was intubated for respiratory distress After a central line. Be a Currently he is on pressors His A. fib with RVR 100 3240 beats a minute Blood pressure on pressors and 73/49 mmHg Breath sounds are reduced bilaterally Heart sounds are tachycardic Skin is mottled and purple REVIEW OF LABS, ECG & MEDICAL DATA Normal white count Hemoglobin 15 and then subsequently the hematocrit increased from 47-58 PH acidotic Patient hyperkalemic Creatinine 3.2, worsening Elevated lactic acid Borderline troponin Twelve-lead EKG shows atrial fibrillation with RVR 140 beats a minute Patient recently discharged from the hospital after experiencing an embolic stroke returns for nausea or palpitations and dizziness Progressively Past Medical History Past Medical History: Atrial Fibrillation, Cancer, Heart Failure, CVA/TIA, Hypertension, Renal Disease Additional Past Medical History / Comment(s): HX. BILAT HYDRONEPHROSIS, hx. perforated diverticulum, hx. of A-fib in past-says doesn't have anymore-took xarelto until few months ago, hx. prostate cancer-tx. w/cryotherapy History of Any Multi-Drug Resistant Organisms: None Reported Past Surgical History: Back Surgery, Bowel Resection Additional Past Surgical History / Comment(s): SX TO RELIEVE BLEEDING IN THE HEAD from head injury @[facility],. COLOSTOMY 2015 then reversal Past Anesthesia/Blood Transfusion Reactions: No Reported Reaction Past Psychological History: No Psychological Hx Reported Smoking Status: Never smoker Past Alcohol Use History: Occasional Past Drug Use History: None Reported - Past Family History Father Family Medical History: AFIB, Coronary Artery Disease (CAD), Prostate Disorder Medications and Allergies Home Medications Medication Instructions Recorded Confirmed Type Apixaban [Eliquis] 5 mg PO BID #60 tab 03/03/21 03/12/21 Rx Aspirin 81 mg PO DAILY #30 chew 03/03/21 03/12/21 Rx Atorvastatin [Lipitor] 10 mg PO HS #30 tab 03/03/21 03/12/21 Rx Furosemide [Lasix] 40 mg PO DAILY #30 tablet 03/03/21 03/12/21 Rx Lisinopril [Prinivil] 5 mg PO DAILY #30 tab 03/03/21 03/12/21 Rx Metoprolol Tartrate [Lopressor] 50 mg PO BID #60 tab 03/03/21 03/12/21 Rx Allergies Allergy/AdvReac Type Severity Reaction Status Date / Time divalproex sodium Allergy Rash/Hives Verified 03/12/21 10:22 [From [facility]] Physical Exam Vitals: Vital Signs Temp Pulse Pulse Resp BP BP Pulse Ox 03/13/21 14:00 131 H 28 H 73/49 03/13/21 13:00 102 H 61/47 100 03/13/21 12:00 144 H 20 50/33 78 L 03/13/21 11:00 75 29 H 139/123 99 03/13/21 10:00 68 32 H 94/74 89 L 03/13/21 09:00 96.0 F L 72 34 H 92/70 03/13/21 04:00 97.2 F L 77 30 H 95/64 95 03/13/21 00:00 97.0 F L 74 24 90/62 95 03/12/21 20:00 97.6 F 82 20 119/84 99 03/12/21 16:25 97.4 F L 105 H 18 119/85 Intake and Output 03/13/21 03/13/21 03/13/21 06:59 14:59 22:59 Intake Total 10 3856.855 11.833 Output Total 350 0 Balance -340 3856.855 11.833 Intake: IV 10 3850 Dextrose 5% in Water 1, 750 000 ml @ 125 mls/hr IV . Q9H12M LYNN with Sodium Bicarb (1 Meq/ml) 150 ml Rx#:[id number] Invasive Line 3 10 Piperacillin-Tazobactam 3 100 .375 gm In Sodium Chloride 0.9% 100 ml @ 25 mls/hr IVPB Q12HR LYNN Rx #:[id number] Sodium Chloride 0.9% 1, 1000 000 ml @ 999 mls/hr IV . Q1H1M ONE Rx#:[id number] Sodium Chloride 0.9% 1, 2000 000 ml @ 999 mls/hr IV . Q1H1M ONE Rx#:[id number] Intake, IV Titration 6.855 11.833 Amount Heparin Sod,Pork in 0.45% 3.519 NaCl 25,000 unit In 0.45 % NaCl 1 250ml.bag @ 12 UNITS/KG/HR 9.18 mls/hr IV .Q24H [facility] Rx#: [id number] Norepinephrine 32 mg In 3.336 11.833 Sodium Chloride 0.9% 218 ml @ 0.05 MCG/KG/MIN 1. 793 mls/hr IV .Q24H [facility] Rx#:[id number] Output: Urine 350 0 Other: Voiding Method Indwelling Catheter Weight 76.5 kg Results 03/13/21 15:27 03/13/21 14:34 Cardiac Enzymes 03/12/21 03/13/21 03/13/21 Range/Units 17:40 12:35 14:34 AST 55 87 H (17-59) U/L Troponin I 0.053 H* (0.000-0.034) ng/mL Coagulation 03/13/21 Range/Units 05:27 PT 15.8 H (9.0-12.0) sec APTT 24.2 (22.0-30.0) sec CBC 03/13/21 03/13/21 03/13/21 Range/Units 05:27 11:14 12:35 WBC 6.6 6.6 5.5 (3.8-10.6) k/uL RBC 7.03 H 6.92 H 5.27 (4.30-5.90) m/uL Hgb 19.6 H* 19.0 H 15.3 D (13.0-17.5) gm/dL Hct 62.8 H* 61.6 H* 47.0 (39.0-53.0) % Plt Count 326 284 237 (150-450) k/uL 03/13/21 Range/Units 15:27 WBC 6.4 (3.8-10.6) k/uL RBC 6.70 H (4.30-5.90) m/uL Hgb 19.5 H* D (13.0-17.5) gm/dL Hct 58.8 H* (39.0-53.0) % Plt Count 265 (150-450) k/uL Comprehensive Metabolic Panel 03/13/21 03/13/21 03/13/21 Range/Units 05:27 12:35 14:34 Sodium 139 145 148 H (137-145) mmol/L Potassium 6.4 H* 3.1 L 4.6 (3.5-5.1) mmol/L Chloride 115 H 118 H 119 H (98-107) mmol/L Carbon Dioxide 12 L 19 L 12 L (22-30) mmol/L BUN 87 H 84 H 86 H (9-20) mg/dL Creatinine 3.55 H 3.20 H 3.21 H (0.66-1.25) mg/dL Glucose 72 L 193 H 62 L (74-99) mg/dL Calcium 10.7 H 8.0 L 10.1 (8.4-10.2) mg/dL AST 55 87 H (17-59) U/L ALT 31 50 H (4-49) U/L Alkaline Phosphatase 21 L 24 L (38-126) U/L Total Protein 2.6 L 3.6 L (6.3-8.2) g/dL Albumin 1.2 L 1.7 L (3.5-5.0) g/dL Current Medications Generic Name Dose Route Start Last Admin Trade Name Freq PRN Reason Stop Dose Admin Aspirin 81 mg 03/13/21 09:00 03/13/21 09:48 Aspirin 81 Mg PO Not Given DAILY LYNN Atorvastatin Calcium 10 mg 03/12/21 21:00 03/12/21 21:12 Atorvastatin 10 Mg Tab PO 10 mg HS LYNN Administration Heparin Sodium (Porcine) 0 unit 03/13/21 09:34 Heparin Sodium 1,000 Un/Ml (10ml Vl) IV PER PROTOCOL PRN Low PTT Protocol Sodium Bicarbonate 150 ml/ 1,150 mls @ 125 mls/hr 03/13/21 05:15 03/13/21 06:55 Dextrose/Water IV 75 mls/hr .Q9H12M LYNN Administration Piperacillin Sod/Tazobactam 100 mls @ 25 mls/hr 03/13/21 09:30 03/13/21 09:54 Sod 3.375 gm/ Sodium Chloride IVPB 25 mls/hr Q12HR LYNN Administration Heparin Sodium/Sodium Chloride 250 mls @ 9.18 mls/hr 03/13/21 09:45 03/13/21 11:51 25,000 unit/ Sodium Chloride IV 0 units/kg/hr .Q24H LYNN 0 mls/hr Titration Protocol 12 UNITS/KG/HR Norepinephrine Bitartrate 32 250 mls @ 1.793 mls/hr 03/13/21 13:45 03/13/21 15:21 mg/ Sodium Chloride IV 0.4 mcg/kg/min .Q24H LYNN 14.344 mls/hr Titration Protocol 0.05 MCG/KG/MIN Propofol 1,000 mg/ IV Solution 100 mls @ 0 mls/hr 03/13/21 16:00 03/13/21 15:45 IV 10 mcg/kg/min .Q0M LYNN 4.59 mls/hr Administration Protocol Titrate Metoprolol Tartrate 50 mg 03/12/21 21:00 03/13/21 09:48 Metoprolol Tartrate 50 Mg Tab PO Not Given BID LYNN Naloxone HCl 0.2 mg 03/12/21 13:46 Naloxone 0.4 Mg/Ml 1 Ml Vial IV Q2M PRN Opioid Reversal Ondansetron HCl 4 mg 03/12/21 12:40 03/12/21 12:51 Ondansetron 4 Mg/2 Ml Vial IVP 4 mg Q8HR PRN Administration Nausea Pantoprazole Sodium 40 mg 03/13/21 14:00 03/13/21 15:46 Pantoprazole 40 Mg/10 Ml Vial IVP 40 mg BID LYNN Administration Intake and Output 03/13/21 03/13/21 03/13/21 06:59 14:59 22:59 Intake Total 10 3856.855 11.833 Output Total 350 0 Balance -340 3856.855 11.833 Intake: IV 10 3850 Dextrose 5% in Water 1, 750 000 ml @ 125 mls/hr IV . Q9H12M LYNN with Sodium Bicarb (1 Meq/ml) 150 ml Rx#:[id number] Invasive Line 3 10 Piperacillin-Tazobactam 3 100 .375 gm In Sodium Chloride 0.9% 100 ml @ 25 mls/hr IVPB Q12HR [facility] Rx #:[id number] Sodium Chloride 0.9% 1, 1000 000 ml @ 999 mls/hr IV . Q1H1M ONE Rx#:[id number] Sodium Chloride 0.9% 1, 2000 000 ml @ 999 mls/hr IV . Q1H1M ONE Rx#:[id number] Intake, IV Titration 6.855 11.833 Amount Heparin Sod,Pork in 0.45% 3.519 NaCl 25,000 unit In 0.45 % NaCl 1 250ml.bag @ 12 UNITS/KG/HR 9.18 mls/hr IV .Q24H [facility] Rx#: [id number] Norepinephrine 32 mg In 3.336 11.833 Sodium Chloride 0.9% 218 ml @ 0.05 MCG/KG/MIN 1. 793 mls/hr IV .Q24H [facility] Rx#:[id number] Output: Urine 350 0 Other: Voiding Method Indwelling Catheter Weight 76.5 kg 03/13/21 15:27 03/13/21 14:34
[2021-03-13] MEDS ORDERED: LORazepam 2 MG/ML INJ IV STA (16:34)
[2021-03-13] MEDS ORDERED: LORazepam 2 MG/ML INJ ONE (16:35)
[2021-03-13 16:57] LABS: Glucose,Whole Blood 21 mg/dL (75-99)
[2021-03-13 16:59] LABS: Glucose,Whole Blood 81 mg/dL (75-99)
[2021-03-13 18:11] LABS: ABG Base Excess -4.9 mmol/L; ABG HCO3 19 mmol/L (21-25); ABG PCO2 29 mmHg (35-45); ABG PH 7.44 (7.35-7.45); ABG PO2 78 mmHg (83-108); ABG TCO2 20 mmol/L (19-24)
[2021-03-13 18:40] VITALS: RESP 28
[2021-03-13] MEDS ORDERED: levETIRAcetam IV 500 MG in SODIUM CHLORIDE 0.9% 100 ML IVPB SCH (19:00)
[2021-03-13] MEDS ORDERED: MORPHINE SULFATE 2 MG/ML SYRINGE IV PRN (19:20)
[2021-03-13] MEDS ORDERED: MORPHINE SULFATE 4 MG/ML SYRINGE IV PRN (19:20)
--- NOTE | 2021-03-13 19:34 | P.EN ---
Code Blue Note Code called at 1624, PEA on the monitor No palpable pulse. Given epi X 1 and Bicarb X1 with ROSC at 1625. He was then noted to have in turning of bilateral upper extremities, and then focal tremor in Right upper extremity- given aivan 0.25 mg without response. Lab work reviewed from 1500 which showed refractory acidosis and lactic acid 7.2, Patient given one additional amp of bicarb and able to go down slightly on levo. Dr. Robbins notified, no additional orders received Dr. Jenkins notified of change- not candidate for HD a this time as to unstable. Dr. Swann notified and consult placed who examined patient at bedside and recommended keppra load Stat CK and prolactin levels ordered. Stat head CT ordered if patient becomes stable enough for transport DX: KYLEE, refractory acidosis lactic acidosis possible subclinical seizure A fib with RVR Respiratory failure A total of 32 minutes of critical care time was spent on this complex patient Total time today 107 minutes, excluding cardioversion
[2021-03-13 19:52] VITALS: BP 101/63; PULSE 165
[2021-03-13] MEDS ORDERED: MORPHINE SULFATE (100 MG/2 ML) 100 MG in SODIUM CHLORIDE 0.9% 100 ML IV SCH (20:00)
--- NOTE | 2021-03-13 23:01 | P.CNNES ---
History of Present Illness Consult date: 03/13/21 Requesting physician: Yeni Del Rosario Reason for Consult: Altered mentation, possible seizure, recent CVA History of Present Illness: Patient is a 65-year-old male, well known to me from recent admission to the hospital for an acute recurrent CVA, cardioembolic from atrial fibrillation. Patient has history of noncompliance with his Xarelto, anticoagulant therapy. Patient on the last admission was placed on aspirin 81 mg and Eliquis 5 mg twice a day. Patient was discharged on 03/03/2021. Patient now brought to the hospital yesterday at 9:40 AM by his friend after he was noted to have to have altered mental status, more lethargic, shortness of breath or dizziness. He was again found to be in atrial fibrillation with rapid ventricular rate. Patient had denied being on anticoagulants. Patient developed worsening mental status with less responsiveness hypoxia and hypotension. Patient was noted to have da rk urine in the [place] was nonverbal, peripheral pulses hard to detect and thready. Patient was given fluid challenge. Patient had cardiac arrest today with the downtime of 2 minutes. Patient received one ampule of sodium bicarbonate. Patient currently on high-dose Levophed patient has developed severe mottling of bilateral lower extremities, as well as in the bottom of the feet. He quoted another time with pulseless electrical activity. Patient's blood pressure has been running between mean arterial pressure between 36-107. Patient is very unstable, not able to get the computed tomography scan of the head. Patient after the cardiac arrest has developed rhythmic twitching/trembling of the right arm, some posturing. Neurology was consulted. Patient also has developed acute renal failure with severe acidosis. Sodium 148, potassium 4.6, BUN 86, creatinine 3.1 Review of Systems ROS unobtainable: due to endotracheal tube, due to mental status Past Medical History Past Medical History: Atrial Fibrillation, Cancer, Heart Failure, CVA/TIA, Hypertension, Renal Disease Additional Past Medical History / Comment(s): HX. BILAT HYDRONEPHROSIS, hx. perforated diverticulum, hx. of A-fib in past-says doesn't have anymore-took xarelto until few months ago, hx. prostate cancer-tx. w/cryotherapy History of Any Multi-Drug Resistant Organisms: None Reported Past Surgical History: Back Surgery, Bowel Resection Additional Past Surgical History / Comment(s): SX TO RELIEVE BLEEDING IN THE HEAD from head injury @[facility],. COLOSTOMY 2015 then reversal Past Anesthesia/Blood Transfusion Reactions: No Reported Reaction Past Psychological History: No Psychological Hx Reported Smoking Status: Never smoker Past Alcohol Use History: Occasional Past Drug Use History: None Reported - Past Family History Father Family Medical History: AFIB, Coronary Artery Disease (CAD), Prostate Disorder Medications and Allergies Home Medications Medication Instructions Recorded Confirmed Type Apixaban [Eliquis] 5 mg PO BID #60 tab 03/03/21 03/12/21 Rx Aspirin 81 mg PO DAILY #30 chew 03/03/21 03/12/21 Rx Atorvastatin [Lipitor] 10 mg PO HS #30 tab 03/03/21 03/12/21 Rx Furosemide [Lasix] 40 mg PO DAILY #30 tablet 03/03/21 03/12/21 Rx Lisinopril [Prinivil] 5 mg PO DAILY #30 tab 03/03/21 03/12/21 Rx Metoprolol Tartrate [Lopressor] 50 mg PO BID #60 tab 03/03/21 03/12/21 Rx Allergies Allergy/AdvReac Type Severity Reaction Status Date / Time divalproex sodium Allergy Rash/Hives Verified 03/12/21 10:22 [From [facility]] Physical Examination - Vital Signs Vital Signs: Vital Signs Temp Pulse Pulse Resp BP BP Pulse Ox 03/13/21 14:00 131 H 28 H 73/49 03/13/21 13:00 102 H 61/47 100 03/13/21 12:00 144 H 20 50/33 78 L 03/13/21 11:00 75 29 H 139/123 99 03/13/21 10:00 68 32 H 94/74 89 L 03/13/21 09:00 96.0 F L 72 34 H 92/70 03/13/21 04:00 97.2 F L 77 30 H 95/64 95 03/13/21 00:00 97.0 F L 74 24 90/62 95 03/12/21 20:00 97.6 F 82 20 119/84 99 Intake and Output 03/13/21 03/13/21 03/13/21 06:59 14:59 22:59 Intake Total 10 3856.855 14.358 Output Total 350 0 Balance -340 3856.855 14.358 Intake: IV 10 3850 Dextrose 5% in Water 1, 750 000 ml @ 125 mls/hr IV . Q9H12M LYNN with Sodium Bicarb (1 Meq/ml) 150 ml Rx#:[id number] Invasive Line 3 10 Piperacillin-Tazobactam 3 100 .375 gm In Sodium Chloride 0.9% 100 ml @ 25 mls/hr IVPB Q12HR LYNN Rx #:[id number] Sodium Chloride 0.9% 1, 1000 000 ml @ 999 mls/hr IV . Q1H1M ONE Rx#:[id number] Sodium Chloride 0.9% 1, 2000 000 ml @ 999 mls/hr IV . Q1H1M ONE Rx#:[id number] Intake, IV Titration 6.855 14.358 Amount Heparin Sod,Pork in 0.45% 3.519 NaCl 25,000 unit In 0.45 % NaCl 1 250ml.bag @ 12 UNITS/KG/HR 9.18 mls/hr IV .Q24H LYNN Rx#: [id number] Norepinephrine 32 mg In 3.336 11.833 Sodium Chloride 0.9% 218 ml @ 0.05 MCG/KG/MIN 1. 793 mls/hr IV .Q24H LYNN Rx#:[id number] propofoL 1,000 mg In 2.525 Empty Bag 1 bag @ Titrate IV .Q0M LYNN Rx#: [id number] Output: Urine 350 0 Other: Voiding Method Indwelling Catheter Weight 76.5 kg On examination patient is comatose, not responding to painful or verbal stimuli. Patient is intubated on mechanical ventilation. Patient is on high-dose Levophed. His pupils are about 3 mm, sluggishly reacting bilaterally. Gaze is midline. Oculocephalics are absent. Corneals are minimally present. Phase cannot be assessed. Patient has severe mottling of bilateral lower extremities as well as the bottom of the feet. Reflexes are absent and plantars are upgoing bilaterally. Patient has some tremors/increased tonicity of the right upper extremity with posturing. Sometimes his leg also probably worse. No facial twitching was noted. Tone is increased. Bulk of muscles is normal. Cerebellar functions, sensations could not be tested. Results - Laboratory Findings CBC and BMP: 03/13/21 15:27 03/13/21 14:34 Abnormal Lab Findings: Abnormal Labs 03/12/21 03/12/21 03/12/21 09:47 10:00 10:00 WBC 13.8 H RBC 6.88 H Hgb 19.5 H* D Hct 60.7 H* MCHC Neutrophils # 12.8 H Lymphocytes # 0.4 L Lymphocytes # (Manual) Monocytes # (Manual) PT INR APTT ABG pH ABG pCO2 ABG pO2 ABG HCO3 ABG Total CO2 ABG O2 Saturation Sodium Potassium 5.7 H Chloride 110 H Carbon Dioxide 14 L BUN 75 H Creatinine 2.34 H Glucose 181 H POC Glucose (mg/dL) 169 H Plasma Lactic Acid Vicente Calcium 12.0 H Phosphorus Magnesium 2.4 H AST ALT Alkaline Phosphatase Troponin I Total Protein Albumin Procalcitonin Urine Protein Urine Blood Ur Leukocyte Esterase Urine WBC Urine WBC Clumps Urine Bacteria Urine Mucus 03/12/21 03/12/21 03/12/21 11:10 15:51 16:42 WBC RBC Hgb Hct MCHC Neutrophils # Lymphocytes # Lymphocytes # (Manual) Monocytes # (Manual) PT INR APTT 18.8 L ABG pH ABG pCO2 ABG pO2 ABG HCO3 ABG Total CO2 ABG O2 Saturation Sodium Potassium Chloride Carbon Dioxide BUN Creatinine Glucose POC Glucose (mg/dL) 145 H Plasma Lactic Acid Vicente Calcium Phosphorus Magnesium AST ALT Alkaline Phosphatase Troponin I Total Protein Albumin Procalcitonin Urine Protein 2+ H Urine Blood Large H Ur Leukocyte Esterase Large H Urine WBC >182 H Urine WBC Clumps Few H Urine Bacteria Few H Urine Mucus Rare H 03/12/21 03/12/21 03/12/21 17:40 17:40 20:15 WBC RBC Hgb Hct MCHC Neutrophils # Lymphocytes # Lymphocytes # (Manual) Monocytes # (Manual) PT INR APTT ABG pH ABG pCO2 ABG pO2 ABG HCO3 ABG Total CO2 ABG O2 Saturation Sodium Potassium Chloride Carbon Dioxide BUN Creatinine Glucose POC Glucose (mg/dL) 194 H Plasma Lactic Acid Vicente Calcium Phosphorus Magnesium AST ALT Alkaline Phosphatase Troponin I 0.053 H* Total Protein Albumin Procalcitonin 1.42 H Urine Protein Urine Blood Ur Leukocyte Esterase Urine WBC Urine WBC Clumps Urine Bacteria Urine Mucus 03/13/21 03/13/21 03/13/21 01:05 04:40 05:27 WBC RBC 7.03 H Hgb 19.6 H* Hct 62.8 H* MCHC Neutrophils # Lymphocytes # Lymphocytes # (Manual) 0.79 L Monocytes # (Manual) 1.06 H PT INR APTT ABG pH 7.08 L* ABG pCO2 20 L ABG pO2 236 H ABG HCO3 6 L* ABG Total CO2 7 L ABG O2 Saturation 99.1 H Sodium Potassium Chloride Carbon Dioxide BUN Creatinine Glucose POC Glucose (mg/dL) 114 H Plasma Lactic Acid Vicente Calcium Phosphorus Magnesium AST ALT Alkaline Phosphatase Troponin I Total Protein Albumin Procalcitonin Urine Protein Urine Blood Ur Leukocyte Esterase Urine WBC Urine WBC Clumps Urine Bacteria Urine Mucus 03/13/21 03/13/21 03/13/21 05:27 05:27 05:27 WBC RBC Hgb Hct MCHC Neutrophils # Lymphocytes # Lymphocytes # (Manual) Monocytes # (Manual) PT 15.8 H INR 1.6 H APTT ABG pH ABG pCO2 ABG pO2 ABG HCO3 ABG Total CO2 ABG O2 Saturation Sodium Potassium 6.4 H* Chloride 115 H Carbon Dioxide 12 L BUN 87 H Creatinine 3.55 H Glucose 72 L POC Glucose (mg/dL) Plasma Lactic Acid Vicente 4.0 H* Calcium 10.7 H Phosphorus Magnesium AST ALT Alkaline Phosphatase Troponin I Total Protein Albumin Procalcitonin Urine Protein Urine Blood Ur Leukocyte Esterase Urine WBC Urine WBC Clumps Urine Bacteria Urine Mucus 03/13/21 03/13/21 03/13/21 06:45 08:32 11:14 WBC RBC 6.92 H Hgb 19.0 H Hct 61.6 H* MCHC 30.8 L Neutrophils # Lymphocytes # Lymphocytes # (Manual) Monocytes # (Manual) PT INR APTT ABG pH ABG pCO2 ABG pO2 ABG HCO3 ABG Total CO2 ABG O2 Saturation Sodium Potassium Chloride Carbon Dioxide BUN Creatinine Glucose POC Glucose (mg/dL) 62 L Plasma Lactic Acid Vicente 4.2 H* Calcium Phosphorus Magnesium AST ALT Alkaline Phosphatase Troponin I Total Protein Albumin Procalcitonin Urine Protein Urine Blood Ur Leukocyte Esterase Urine WBC Urine WBC Clumps Urine Bacteria Urine Mucus 03/13/21 03/13/21 03/13/21 11:14 12:35 12:54 WBC RBC Hgb Hct MCHC Neutrophils # Lymphocytes # Lymphocytes # (Manual) Monocytes # (Manual) PT INR APTT ABG pH 7.18 L* ABG pCO2 51 H ABG pO2 254 H ABG HCO3 19 L ABG Total CO2 ABG O2 Saturation 99.4 H Sodium Potassium 3.1 L Chloride 118 H Carbon Dioxide 19 L BUN 84 H Creatinine 3.20 H Glucose 193 H POC Glucose (mg/dL) Plasma Lactic Acid Vicente 3.8 H* Calcium 8.0 L Phosphorus 5.2 H Magnesium AST ALT Alkaline Phosphatase 21 L Troponin I Total Protein 2.6 L Albumin 1.2 L Procalcitonin Urine Protein Urine Blood Ur Leukocyte Esterase Urine WBC Urine WBC Clumps Urine Bacteria Urine Mucus 03/13/21 03/13/21 03/13/21 14:34 14:34 15:27 WBC RBC 6.70 H Hgb 19.5 H* D Hct 58.8 H* MCHC Neutrophils # Lymphocytes # Lymphocytes # (Manual) Monocytes # (Manual) PT INR APTT ABG pH ABG pCO2 ABG pO2 ABG HCO3 ABG Total CO2 ABG O2 Saturation Sodium 148 H Potassium Chloride 119 H Carbon Dioxide 12 L BUN 86 H Creatinine 3.21 H Glucose 62 L POC Glucose (mg/dL) Plasma Lactic Acid Vicente 7.1 H* Calcium Phosphorus 6.3 H Magnesium AST 87 H ALT 50 H Alkaline Phosphatase 24 L Troponin I Total Protein 3.6 L Albumin 1.7 L Procalcitonin Urine Protein Urine Blood Ur Leukocyte Esterase Urine WBC Urine WBC Clumps Urine Bacteria Urine Mucus 03/13/21 16:56 WBC RBC Hgb Hct MCHC Neutrophils # Lymphocytes # Lymphocytes # (Manual) Monocytes # (Manual) PT INR APTT ABG pH ABG pCO2 ABG pO2 ABG HCO3 ABG Total CO2 ABG O2 Saturation Sodium Potassium Chloride Carbon Dioxide BUN Creatinine Glucose POC Glucose (mg/dL) 21 L Plasma Lactic Acid Vicente Calcium Phosphorus Magnesium AST ALT Alkaline Phosphatase Troponin I Total Protein Albumin Procalcitonin Urine Protein Urine Blood Ur Leukocyte Esterase Urine WBC Urine WBC Clumps Urine Bacteria Urine Mucus Assessment and Plan Assessment: * Recent history of CVA, cardioembolic, due to atrial fibrillation. * Acute altered mental status with toxic metabolic encephalopathy. Need to rule out new CVA. * Tremors, right more than left. Perhaps metabolic from acute metabolic encephalopathy. Rule out seizures, status. * Status post cardiac arrest 2, with downtime of about 2 minutes. 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 * History of craniotomy due to intracranial bleed 8 or 9 years ago. Plan: * Patient has severe positive metabolic encephalopathy. Need to rule out a new stroke or ICB. * Stat computed tomography scan of the head when possible from hemodynamic standpoint * Empirically start Keppra. Based upon renal functions, we will place patient on 500 mg IV daily. * EEG in the morning. * Medical management as per critical care, IM, cardiology and other specialties. * Prognosis appears poor based upon his current medical condition.
--- NOTE | 2021-03-14 12:26 | P.DS ---
Providers Date of admission: 03/12/21 13:46 Expected date of discharge: 03/13/21 Attending physician: Andrew Medellin Consults: 03/12/21 13:47 Consult Physician Routine Consulting Provider: Venecia Castellon Consult Reason/Comments: Rapid atrial fibrillation Do you want consulting provider notified?: Yes Consult Physician Routine Consulting Provider: Jessica Jenkins Consult Reason/Comments: Renal insufficiency Do you want consulting provider notified?: Yes 03/13/21 06:38 Consult Physician Routine Consulting Provider: Lexi Robbins Consult Reason/Comments: metabolic acidosis, hypotension Do you want consulting provider notified?: Yes 03/13/21 11:48 Consult Physician Routine Consulting Provider: Emeka Sofia Consult Reason/Comments: Possible free air Do you want consulting provider notified?: Yes 03/13/21 16:46 Consult Physician Routine Consulting Provider: Bhavya Swann Consult Reason/Comments: altered menation, possible seizure, recent CVA Do you want consulting provider notified?: Yes 03/13/21 17:14 Consult Physician Stat Consulting Provider: Madhu Rios Consult Reason/Comments: seizure like activity/post stroke Do you want consulting provider notified?: Already Contacted Primary care physician: Andrew Medellin This is a dictation on discharge summary: Disposition on 03/13/2021 Time 2004 hour equal to 8:04 PM Family requested comfort care, patient was in ICU, Final diagnosis: #1 patient was on mechanical ventilation, intubated, with hypoxia, after he had coded twice. #2 hypotension severe with circulatory failure secondary to ischemic cardiomyopathy with the ejection fraction 25%. #3 patient presented initially to the ER with the atrial fibrillation with RVR 168/m and regular. #4 acute renal failure with the acute kidney injury associated with hyper kalemia. #5 sepsis with the urinary tract infection, secondary to urinary retention and self catheterization. A failure to my progress note on 03/13/2021. Extensive discussion with conference call with his sister Shyla Petersen and his friend Janice TANNER on the phone for more than half an hour answering the question. Patient with poor prognosis. Seen by critical care and pulmonary, nephrology, cardiology. Patient Condition at Discharge: Fair Plan - Discharge Summary Discharge Rx Participant: No New Discharge Prescriptions: Discontinued Aspirin 81 mg PO DAILY #30 chew Apixaban [Eliquis] 5 mg PO BID #60 tab Metoprolol Tartrate [Lopressor] 50 mg PO BID #60 tab Furosemide [Lasix] 40 mg PO DAILY #30 tablet Atorvastatin [Lipitor] 10 mg PO HS #30 tab Lisinopril [Prinivil] 5 mg PO DAILY #30 tab Follow up Appointment(s)/Referral(s): Andrew Medellin MD [Primary Care Provider] - 1-2 days Discharge Disposition: - Preliminary Cause of Preliminary Cause of : Cardiomyopathy, hypotension, acute kidney injury with renal failure, hypoxe
== END 2021-03-13 22:40 | disposition expired | DRG 698 ==
LOC: EC 09:40 → 3SCARD 13:46 → 2SICU 03-13 08:06 → UNDODISIN 03-13 18:26
PROVIDERS: ADMIT Internal Medicine; ATTEND Internal Medicine
PROC: 0DH67UZ Insertion of Feeding Device into Stomach, Via Natural or Artificial Opening (ICD-10-PCS; 2021-03-12)
PROC: 5A12012 Performance of Cardiac Output, Single, Manual (ICD-10-PCS; principal; 2021-03-13)
PROC: 0BH17EZ Insertion of Endotracheal Airway into Trachea, Via Natural or Artificial Opening (ICD-10-PCS; 2021-03-13)
PROC: 02HV33Z Insertion of Infusion Device into Superior Vena Cava, Percutaneous Approach (ICD-10-PCS; 2021-03-13)
PROC: 5A2204Z Restoration of Cardiac Rhythm, Single (ICD-10-PCS; 2021-03-13)
PROC: 3E033XZ Introduction of Vasopressor into Peripheral Vein, Percutaneous Approach (ICD-10-PCS; 2021-03-13)
PROC: 5A1935Z Respiratory Ventilation, Less than 24 Consecutive Hours (ICD-10-PCS; 2021-03-13)
PROC: 5A0935A Assistance with Respiratory Ventilation, Less than 24 Consecutive Hours, High Flow/Velocity Cannula (ICD-10-PCS; 2021-03-13)
DX: T83.518A Infection and inflammatory reaction due to other urinary catheter, initial encounter (principal); N17.0 Acute kidney failure with tubular necrosis; G92 Toxic encephalopathy; J96.01 Acute respiratory failure with hypoxia; A40.1 Sepsis due to streptococcus, group B; I48.20 Chronic atrial fibrillation, unspecified; E87.2 Acidosis; N39.0 Urinary tract infection, site not specified; I13.0 Hypertensive heart and chronic kidney disease with heart failure and stage 1 through stage 4 chronic kidney disease, or unspecified chronic kidney disease; R57.9 Shock, unspecified; E87.0 Hyperosmolality and hypernatremia; I50.22 Chronic systolic (congestive) heart failure; Z20.822 Contact with and (suspected) exposure to COVID-19; E86.0 Dehydration; I25.5 Ischemic cardiomyopathy; E87.5 Hyperkalemia; E83.52 Hypercalcemia; I69.320 Aphasia following cerebral infarction; I46.9 Cardiac arrest, cause unspecified; R56.9 Unspecified convulsions; R33.9 Retention of urine, unspecified; Z79.01 Long term (current) use of anticoagulants; D75.1 Secondary polycythemia; Z79.82 Long term (current) use of aspirin; E78.5 Hyperlipidemia, unspecified; T46.4X5A Adverse effect of angiotensin-converting-enzyme inhibitors, initial encounter; Z85.46 Personal history of malignant neoplasm of prostate; Z91.19 Patient's noncompliance with other medical treatment and regimen; Z82.49 Family history of ischemic heart disease and other diseases of the circulatory system; Z79.899 Other long term (current) drug therapy; N18.30 Chronic kidney disease, stage 3 unspecified; Z88.8 Allergy status to other drugs, medicaments and biological substances; R53.81 Other malaise; R77.8 Other specified abnormalities of plasma proteins; R73.9 Hyperglycemia, unspecified; Y84.6 Urinary catheterization as the cause of abnormal reaction of the patient, or of later complication, without mention of misadventure at the time of the procedure
CPT/HCPCS: 36415; 36600; 71045; 71046; 76770; 80048; 80053; 81001; 82550; 82805; 83036; 83605; 83735; 83880; 84100; 84145; 84146; 84443; 84484; 85025; 85027; 85610; 85730; 87086; 87635; 92950; 93005